=== PATIENT | female | born 1990 | race Caucasian/White ===

== ENCOUNTER 2018-01-09 10:39 | Emergency (ER) | payer BC, OTHER, SELFPAY ==
[2018-01-09 11:48] LABS: Bicarbonate 26 mEq/L (21-31); Glucose Level 99 mg/dL (65-120); Potassium 3.8 mEq/L (3.6-5.0); Sodium Level 138 mEq/L (135-145)
[2018-01-09 11:49] LABS: BUN Blood Urea Nitrogen 8 mg/dL (6-20)
[2018-01-09 11:50] LABS: Absolute Lymphocytes (CBC) 2.6 K/uL (0.7-4.9); Absolute Monocytes 0.6 K/uL (0.1-1.3); Absolute Neutrophil 5.4 K/uL (1.8-8.0); Basophils % 0.5 % (0-1.3); Eosinophils % 0.7 % (0-4.4); Lymphocytes % 29.6 % (15.3-44.8); MCH 30.1 pg (27.0-35.0); MCV 89.9 fL (80-100); MPV 7.5 fL (7.6-11.3); Monocytes % 6.6 % (3.3-12.3); RBC Red Blood Cell Count 4.57 M/uL (3.86-4.86)
[2018-01-09 12:01] LABS: HCG, Quantitative 88.3 mIU/mL (<5)
--- NOTE | 2018-01-09 13:09 | ER ---
Nurse's Notes [facility] Name: Pamela Torres Age: 27 yrs Sex: Female : 1990 Arrival Date: 01/09/2018 Time: 10:43 Bed 17 Private MD: None, None Diagnosis: Threatened Presentation: 01/09 10:49 Presenting complaint: Patient states: is approx 5 weeks , started having iw vaginal bleeding and cramping this morning, started as light pink, no bright red. Transition of care: patient was not received from another setting of care. Onset of symptoms was January 09, 2018. Risk Assessment: Do you want to hurt yourself or someone else? Patient reports no desire to harm self or others. Initial Sepsis Screen: Does the patient meet any 2 criteria? No. Patient's initial sepsis screen is negative. Does the patient have a suspected source of infection? No. Patient's initial sepsis screen is negative. Care prior to arrival: None. 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 - Social history:: Smoking status: Patient uses tobacco products, smokes one-half pack cigarettes per day, Patient/guardian denies using alcohol, street drugs, The patient lives with family. - Ebola Screening: : Patient negative for fever greater than or equal to 101.5 degrees Fahrenheit, and additional compatible Ebola Virus Disease symptoms Patient denies exposure to infectious person Patient denies travel to an Ebola-affected area in the 21 days before illness onset No symptoms or risks identified at this time. - Family history:: not pertinent. Screenin:54 Abuse screen: Denies threats or abuse. Nutritional screening: No deficits noted. em Tuberculosis screening: No symptoms or risk factors identified. Fall Risk None identified. Assessment: 11:00 Reassessment: Patient appears in no apparent distress at this time. General: Appears in em no apparent distress. uncomfortable, Behavior is calm, cooperative. Pain: Complains of pain in abdomen Pain currently is 5 out of 10 on a pain scale. Quality of pain is described as crampy. Neuro: Level of Consciousness is awake, alert, obeys commands, Oriented to person, place, time, situation, Denies dizziness. Cardiovascular: Capillary refill < 3 seconds Patient's skin is warm and dry. Respiratory: Airway is patent Respiratory effort is even, unlabored, Respiratory pattern is regular, symmetrical. GI: Abdomen is round non-distended, Bowel sounds present X 4 quads. Abd is soft X 4 quads Abdomen is tender to palpation in right upper quadrant and right lower quadrant Reports cramping, Patient currently denies diarrhea, nausea, vomiting. : No signs and/or symptoms were reported regarding the genitourinary system. EENT: No signs and/or symptoms were reported regarding the EENT system. Derm: Skin is intact, Skin is pink, warm \T\ dry. Musculoskeletal: Range of motion: intact in all extremities. 11:20 Reassessment: Patient appears in no apparent distress at this time. I agree with above iw assessment by Humberto Mariee LVN. Vital Signs: 10:50 BP 106 / 62; Pulse 81; Resp 16; Temp 98.8(TE); Pulse Ox 100% on R/A; Weight 68.04 kg; iw Height 5 ft. 2 in. (157.48 cm); Pain 5/10; 11:53 BP 94 / 57; Pulse 67; Resp 18; Pulse Ox 100% on R/A; Pain 5/10; em 13:12 BP 111 / 76; Pulse 74; Resp 16; Pulse Ox 99% on R/A; em 10:50 Body Mass Index 27.44 (68.04 kg, 157.48 cm) iw ED Course: 10:43 Patient arrived in ED. mr 10:43 None, None is Private Physician. mr 10:50 Triage completed. iw 10:50 Arm band placed on. iw 10:57 Sudha Horne MD is Attending Physician. ma2 11:23 Humberto Mariee LVN is Primary Nurse. em 11:30 Initial lab(s) drawn, by me, sent to lab. Inserted saline lock: 20 gauge in right em antecubital area, using aseptic technique. Blood collected. 11:54 Patient has correct armband on for positive identification. Placed in gown. Bed in low em position. Call light in reach. 13:11 Transvaginal OB In Process Unspecified. EDMS 13:45 No provider procedures requiring assistance completed. IV discontinued, intact, em bleeding controlled, No redness/swelling at site. Pressure dressing applied. Administered Medications: No medications were administered Point of Care Testing: Urine : 11:53 hCG Reading: Negative; em Outcome: 13:09 Discharge ordered by MD. mckay 13:50 Discharged to home ambulatory. em 13:50 Condition: good 13:50 Discharge instructions given to patient, Instructed on discharge instructions, follow up and referral plans. no drinking with medication, no driving heavy equipment, medication usage, Demonstrated understanding of instructions, follow-up care, medications, Prescriptions given X 1. 13:50 Patient left the ED. em Signatures: Dispatcher [employer] EDSofia Castro, Humberto, HOT TAR ROOFER HELPER HOT TAR ROOFER HELPER em Hien Gomez, Sudha Rene RN, MD MD ma2
--- NOTE | 2018-01-09 13:09 | EDPHYS ---
Physician Documentation [facility] Name: Pamela Torres Age: 27 yrs Sex: Female : 1990 Arrival Date: 01/09/2018 Time: 10:43 Bed 17 Private MD: None, None ED Physician Sudha Horne HPI: 01/09 11:04 This 27 yrs old Female presents to ER via Ambulatory with complaints of ma2 Vaginal Bleeding, + Preg <12wks. 11:04 The patient presents to the emergency department with abdominal pain, of the left lower ma2 quadrant. The estimated gestational age is 5 weeks. Associated signs and symptoms: Pertinent positives: vaginal bleeding, Pertinent negatives: chest pain, frequency, nausea, ruptured membranes, shortness of breath, vaginal discharge, vomiting. The patient has not experienced similar symptoms in the past. 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 - Social history:: Smoking status: Patient uses tobacco products, smokes one-half pack cigarettes per day, Patient/guardian denies using alcohol, street drugs, The patient lives with family. - Ebola Screening: : Patient negative for fever greater than or equal to 101.5 degrees Fahrenheit, and additional compatible Ebola Virus Disease symptoms Patient denies exposure to infectious person Patient denies travel to an Ebola-affected area in the 21 days before illness onset No symptoms or risks identified at this time. - Family history:: not pertinent. ROS: 11:04 : Positive for pelvic pain, vaginal bleeding. ma2 11:04 All other systems are negative. 13:09 Constitutional: Negative for fever, chills, and weight loss. ma2 Exam: 11:04 Constitutional: This is a well developed, well nourished patient who is awake, alert, ma2 and in no acute distress. Head/Face: Normocephalic, atraumatic. Chest/axilla: Normal chest wall appearance and motion. Nontender with no deformity. No lesions are appreciated. Cardiovascular: Regular rate and rhythm with a normal S1 and S2. No gallops, murmurs, or rubs. Normal PMI, no JVD. No pulse deficits. Respiratory: Lungs have equal breath sounds bilaterally, clear to auscultation and percussion. No rales, rhonchi or wheezes noted. No increased work of breathing, no retractions or nasal flaring. Abdomen/GI: Soft, non-tender, with normal bowel sounds. No distension or tympany. No guarding or rebound. No evidence of tenderness throughout. Vital Signs: 10:50 BP 106 / 62; Pulse 81; Resp 16; Temp 98.8(TE); Pulse Ox 100% on R/A; Weight 68.04 kg; iw Height 5 ft. 2 in. (157.48 cm); Pain 5/10; 11:53 BP 94 / 57; Pulse 67; Resp 18; Pulse Ox 100% on R/A; Pain 5/10; em 13:12 BP 111 / 76; Pulse 74; Resp 16; Pulse Ox 99% on R/A; em 10:50 Body Mass Index 27.44 (68.04 kg, 157.48 cm) iw MDM: 10:57 Patient medically screened. ma2 11:04 Differential diagnosis: delivery of infant, STD, ectopic . ma2 13:08 Data reviewed: vital signs, nurses notes, EMS record, lab test result(s), EKG. Test ma2 interpretation: by ED physician or midlevel provider: ECG, plain radiologic studies. Counseling: I had a detailed discussion with the patient and/or guardian regarding: the historical points, exam findings, and any diagnostic results supporting the discharge/admit diagnosis, the presence of at least one elevated blood pressure reading (>120/80) during this emergency department visit. Medical screen evaluation completed. EMTALA emergency medical condition absent. 01/09 11:04 Order name: Quantitative Hcg; Complete Time: 12:02 [facility] 01/09 11:04 Order name: Abo/rh Typing; Complete Time: 12:43 [facility] 01/09 11:04 Order name: Basic Metabolic Panel; Complete Time: 12:02 [facility] 01/09 11:04 Order name: CBC with Diff; Complete Time: 12:02 [facility] 01/09 11:16 Order name: Urine Dipstick--Ancillary (enter results) bd 01/09 11:16 Order name: Urine --Ancillary (enter results) bd 01/09 11:04 Order name: Urine Test (obtain specimen); Complete Time: 11: [facility] 01/09 11:04 Order name: IV Saline Lock; Complete Time: 11:44 la2 01/09 11:04 Order name: Labs collected and sent; Complete Time: :44 [facility] 01/09 11:04 Order name: NPO; Complete Time: 11: [facility] 01/09 11:04 Order name: Urine Dipstick-Ancillary (obtain specimen); Complete Time: 11: [facility] 01/09 12:10 Order name: Transvaginal OB EDMS 01/09 12:18 Order name: ABO/RH no charge; Complete Time: 12:43 EDMS Administered Medications: No medications were administered Point of Care Testing: Urine : 11:53 hCG Reading: Negative; em Disposition: 01/09/18 13:09 Discharged to Home. Impression: Threatened . - Condition is Stable. - Discharge Instructions: Threatened Miscarriage, Threatened Miscarriage, Veda-ip-Hepb, Pelvic Rest. - Prescriptions for Tylenol- Codeine #3 300-30 mg Oral Tablet - take 2 tablet by ORAL route every 6 hours As needed; 30 tablet. - Medication Reconciliation Form, Thank You Letter, Antibiotic Education, Prescription Opioid Use form. - Follow up: Private Physician; When: Tomorrow; Reason: Continuance of care. - Problem is new. - Symptoms are unchanged. Signatures: Dispatcher [employer] [facility] Humberto Mariee, DIRECTOR OF HOME ECONOMICS DIRECTOR OF HOME ECONOMICS em Hien Gomez RN RN iw Alzahri, Mohammad, MD MD ma2 Corrections: (The following items were deleted from the chart) 12:10 12:02 OB Complete+US.RAD.BRZ ordered. [facility] EDMN 13:50 13:09 01/09/2018 13:09 Discharged to Home. Impression: Threatened . Condition em is Stable. Forms are Medication Reconciliation Form, Thank You Letter, Antibiotic Education, Prescription Opioid Use. Follow up: Private Physician; When: Tomorrow; Reason: Continuance of care. Problem is new. Symptoms are unchanged. ma2
[2018-01-09 13:28] LABS: Urine Blood 1+ (NEG); Urine Glucose NEGATIVE (NEG); Urine Protein NEGATIVE (NEG)
--- NOTE | 2018-01-09 15:37 | RAD REPORT ---
EXAM DESCRIPTION: US - Transvaginal OB - 01/09/2018 1:11 pm CLINICAL HISTORY: Abdominal pain and cramping, vaginal bleeding, beta HCG 88.3 Preliminary findings provided the time of the study. COMPARISON: None. FINDINGS: Endometrial stripe is 9 mm in thickness. Endometrial tissue is homogeneous. No gestational sac or sac remnant identifiable. There is no hematoma. Nabothian cysts are present. No focal myometr ium mass in a normal-sized uterus. No blood or fluid in the cul-de-sac. Right ovary is unremarkable. Left ovary was not visualized. No adnexal mass seen to suspect ectopic . IMPRESSION: No intrauterine gestational sac or sac remnant. No suspicious intrauterine finding. No adnexal abnormality identifiable. Repeat sonography could be performed if serial HCG values show increase.
== END 2018-01-09 13:50 | disposition home or self-care (01) ==
LOC: ER 10:39
DX: O20.0 Threatened abortion (principal); Z3A.01 Less than 8 weeks gestation of pregnancy
CPT/HCPCS: 36415; 76817; 80048; 81003; 81025; 84702; 85025; 86900; 86901; 99284

== ENCOUNTER 2018-01-24 10:12 | Emergency (ER) | payer OTHER ==
[2018-01-24 12:28] LABS: Absolute Lymphocytes (CBC) 2.6 K/uL (0.7-4.9); Absolute Monocytes 0.6 K/uL (0.1-1.3); Absolute Neutrophil 7.4 K/uL (1.8-8.0); Basophils % 0.5 % (0-1.3); Eosinophils % 0.7 % (0-4.4); Hematocrit 42.4 % (36.0-45.0); Lymphocytes % 24.4 % (15.3-44.8); MCH 29.8 pg (27.0-35.0); MCV 91.2 fL (80-100); MPV 7.6 fL (7.6-11.3); Monocytes % 5.6 % (3.3-12.3); RBC Red Blood Cell Count 4.65 M/uL (3.86-4.86)
[2018-01-24 12:41] LABS: Bicarbonate 26 mEq/L (21-31); Glucose Level 89 mg/dL (65-120); Potassium 3.7 mEq/L (3.6-5.0); Sodium Level 139 mEq/L (135-145)
[2018-01-24 12:42] LABS: BUN Blood Urea Nitrogen 8 mg/dL (6-20)
--- NOTE | 2018-01-24 12:43 | RAD REPORT ---
EXAM DESCRIPTION: US - Transvaginal OB - 01/24/2018 12:27 pm CLINICAL HISTORY: with abdominal pain and vaginal bleeding COMPARISON: January 09, 2018 FINDINGS: The beta HCG level was not available the time of this dictation. The uterus measures 10 x 5 x 6 centimeters. A gestational sac is not visualized within the endometriu m. The endometrial stripe measures 9 millimeters. The ovaries are normal in size and echotexture. No significant free fluid is seen. IMPRESSION: This could represent an early IUP in which the gestational sac is not yet seen. Other co nsiderations include a complete as well as ectopic . This all should be correlated clinically and with serial beta HCG levels. Follow up endovaginal sonogram in 1 week may be helpful f or further evaluation
[2018-01-24 12:54] LABS: Urine Blood NEGATIVE (NEG); Urine Glucose NEGATIVE (NEG); Urine Protein NEGATIVE (NEG); Urine pH 6.5 (5.0-7.0)
[2018-01-24 12:54] LABS: HCG, Quantitative 302.2 mIU/mL (<5)
[2018-01-24 12:56] LABS: Urine Bacteria <20 /HPF (<20); Urine Culture Reflex Order NOT NEEDED; Urine RBC <5 /HPF (NONE SEEN)
--- NOTE | 2018-01-24 13:38 | ER ---
Nurse's Notes [facility] Name: Pamela Torres Age: 27 yrs Sex: Female : 1990 Arrival Date: 01/24/2018 Time: 10:17 Bed 16 Private MD: None, None Diagnosis: Threatened Presentation: 01/24 10:27 Presenting complaint: Patient states: Intermittent spotty vaginal bleeding and lower hb abdominal cramping x 1 week. Pt reports she is approx 7 weeks , , first OB appt with Dr. Multani 02/14/18. Transition of care: patient was not received from another setting of care. Onset of symptoms is unknown. Risk Assessment: Do you want to hurt yourself or someone else? Patient reports no desire to harm self or others. 10:27 Method Of Arrival: Ambulatory hb 10:27 Acuity: MARIO ALBERTO 3 hb 12:00 Initial Sepsis Screen: Does the patient meet any 2 criteria? No. Patient's initial ph sepsis screen is negative. Does the patient have a suspected source of infection? No. Patient's initial sepsis screen is negative. Care prior to arrival: None. 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 - Social history:: Smoking status: Patient uses tobacco products, smokes one-half pack cigarettes per day. - Ebola Screening: : No symptoms or risks identified at this time. Screenin:00 Abuse screen: Denies threats or abuse. Denies injuries from another. Nutritional ph screening: No deficits noted. Tuberculosis screening: No symptoms or risk factors identified. Fall Risk None identified. Assessment: 12:00 Obstetrical Assessment: General assessment: awake and alert, Patient reports abdominal ph cramping. General: Appears in no apparent distress. comfortable, slender, well groomed, Behavior is calm, cooperative, appropriate for age, Denies fever, feeling ill. Pain: Complains of pain in suprapubic area. Neuro: Level of Consciousness is awake, alert, obeys commands, Oriented to person, place, time, situation. Cardiovascular: Capillary refill < 3 seconds Patient's skin is warm and dry. Respiratory: Airway is patent Respiratory effort is even, unlabored. GI: No signs and/or symptoms were reported involving the gastrointestinal system. : Reports pain in suprapubic area vaginal bleeding that is spotty. Derm: Skin is intact, is healthy with good turgor, Skin is pink, warm \T\ dry. 13:00 Reassessment: Patient appears in no apparent distress at this time. Patient and/or ph family updated on plan of care and expected duration. Pain level reassessed. Patient is alert, oriented x 3, equal unlabored respirations, skin warm/dry/pink. Pt resting quietly, awaiting lab and US results. 14:00 Reassessment: Patient appears in no apparent distress at this time. Patient and/or ph family updated on plan of care and expected duration. Pain level reassessed. Patient is alert, oriented x 3, equal unlabored respirations, skin warm/dry/pink. Pt discharged home. Vital Signs: 10:28 BP 171 / 92; Pulse 89; Resp 16; Temp 98.1; Pulse Ox 100% on R/A; Weight 67.13 kg; hb Height 5 ft. 2 in. (157.48 cm); Pain 4/10; 12:30 BP 164 / 89; Pulse 76; Resp 18; Pulse Ox 99% on R/A; ph 13:30 BP 159 / 78; Pulse 74; Resp 18; Temp 97.8; Pulse Ox 98% on R/A; ph 10:28 Body Mass Index 27.07 (67.13 kg, 157.48 cm) hb ED Course: 10:17 Patient arrived in ED. sb2 10:17 None, None is Private Physician. sb2 10:28 Triage completed. hb 10:29 Arm band placed on right wrist. hb 11:56 Dalia Ga, RN is Primary Nurse. ph 12:00 Patient has correct armband on for positive identification. Placed in gown. Bed in low ph position. Call light in reach. Side rails up X 1. Pulse ox on. NIBP on. Warm blanket given. 12:03 Justin Huddleston NP is PHCP. pm1 12:03 Suraj Caro MD is Attending Physician. pm1 12:21 Initial lab(s) drawn, by me, sent to lab. Urine collected: clean catch specimen, clear, jb1 bakari colored. 12:27 US Transvaginal Ob In Process Unspecified. EDMS 14:00 No provider procedures requiring assistance completed. IV discontinued, intact, ph bleeding controlled, No redness/swelling at site. Pressure dressing applied. Administered Medications: No medications were administered Outcome: 13:38 Discharge ordered by MD. pm1 14:06 Patient left the ED. ph 14:06 Discharged to home ambulatory. ph 14:06 Condition: good 14:06 Discharge instructions given to patient, Instructed on discharge instructions, follow up and referral plans. Demonstrated understanding of instructions, follow-up care. Signatures: Dispatcher [employer] EDMN Manohra William jb1 Dalia Ga, RN RN Justin Toro, [employer] RESTAUR[employer] AREA MANAGER pm1 Fidelina De La Rosa RN RN Toña Hays sb2
--- NOTE | 2018-01-24 13:38 | EDPHYS ---
Physician Documentation [facility] Name: Pamela Torres Age: 27 yrs Sex: Female : 1990 Arrival Date: 01/24/2018 Time: 10:17 Bed 16 Private MD: None, None ED Physician Suraj Caro HPI: 01/24 13:16 This 27 yrs old Female presents to ER via Ambulatory with complaints of pm1 Vaginal Bleeding, + Preg <12wks. 13:16 The patient presents to the emergency department with vaginal bleeding, that is light, pm1 7 days of vaginal bleeding. 1 panty liner per day. Maybe passed some clots on 2nd day of bleeding.. The estimated gestational age is 6 weeks. course: care: Dr. Multani appointment at the beginning of February, Risk/complications: no obvious risks or complications are appreciated. Previous pregnancies: in previous pregnancies patient has had vaginal delivery. Associated signs and symptoms: Pertinent negatives: abdominal pain, dysuria, fever, nausea, vomiting. The patient has not experienced similar symptoms in the past. The patient has not recently seen a physician. 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 - Social history:: Smoking status: Patient uses tobacco products, smokes one-half pack cigarettes per day. - Ebola Screening: : No symptoms or risks identified at this time. ROS: 13:16 Constitutional: Negative for fever, chills, and weight loss, Eyes: Negative for injury, pm1 pain, redness, and discharge, ENT: Negative for injury, pain, and discharge, Neck: Negative for injury, pain, and swelling, Cardiovascular: Negative for chest pain, palpitations, and edema, Respiratory: Negative for shortness of breath, cough, wheezing, and pleuritic chest pain, Abdomen/GI: Negative for abdominal pain, nausea, vomiting, diarrhea, and constipation, Back: Negative for injury and pain. 13:16 MS/Extremity: Negative for injury and deformity, Skin: Negative for injury, rash, and discoloration, Neuro: Negative for headache, weakness, numbness, tingling, and seizure. 13:16 : Positive for vaginal bleeding, Negative for urinary frequency, pelvic pain, flank pain, burning with urination, vaginal discharge, vaginal itching. Exam: 13:16 Constitutional: This is a well developed, well nourished patient who is awake, alert, pm1 and in no acute distress. Head/Face: Normocephalic, atraumatic. Eyes: Pupils equal round and reactive to light, extra-ocular motions intact. Lids and lashes normal. Conjunctiva and sclera are non-icteric and not injected. Cornea within normal limits. Periorbital areas with no swelling, redness, or edema. ENT: Nares patent. No nasal discharge, no septal abnormalities noted. Tympanic membranes are normal and external auditory canals are clear. Oropharynx with no redness, swelling, or masses, exudates, or evidence of obstruction, uvula midline. Mucous membranes moist. Neck: Trachea midline, no thyromegaly or masses palpated, and no cervical lymphadenopathy. Supple, full range of motion without nuchal rigidity, or vertebral point tenderness. No Meningismus. Chest/axilla: Normal chest wall appearance and motion. Nontender with no deformity. No lesions are appreciated. Cardiovascular: Regular rate and rhythm with a normal S1 and S2. No gallops, murmurs, or rubs. No pulse deficits. Respiratory: Lungs have equal breath sounds bilaterally, clear to auscultation and percussion. No rales, rhonchi or wheezes noted. No increased work of breathing, no retractions or nasal flaring. Abdomen/GI: Soft, non-tender, with normal bowel sounds. No distension or tympany. No guarding or rebound. No evidence of tenderness throughout. Back: No spinal tenderness. No costovertebral tenderness. Full range of motion. Skin: Warm, dry with normal turgor. Normal color with no rashes, no lesions, and no evidence of cellulitis. MS/ Extremity: Pulses equal, no cyanosis. Neurovascular intact. Full, normal range of motion. 13:16 Neuro: Orientation: is normal, Motor: is normal, moves all fours, Gait: is steady, at a normal pace, without difficulty. Vital Signs: 10:28 BP 171 / 92; Pulse 89; Resp 16; Temp 98.1; Pulse Ox 100% on R/A; Weight 67.13 kg; hb Height 5 ft. 2 in. (157.48 cm); Pain 4/10; 12:30 BP 164 / 89; Pulse 76; Resp 18; Pulse Ox 99% on R/A; ph 13:30 BP 159 / 78; Pulse 74; Resp 18; Temp 97.8; Pulse Ox 98% on R/A; ph 10:28 Body Mass Index 27.07 (67.13 kg, 157.48 cm) hb MDM: 12:03 Patient medically screened. pm1 13:30 Differential diagnosis: threatened Ab, ectopic , UTI. pm1 13:36 Data reviewed: vital signs. Data interpreted: Pulse oximetry: on room air is 100 %. pm1 Interpretation: normal. Counseling: I had a detailed discussion with the patient and/or guardian regarding: the historical points, exam findings, and any diagnostic results supporting the discharge/admit diagnosis, lab results, radiology results, the need for outpatient follow up, an OB/Gyne specialist, to return to the emergency department if symptoms worsen or persist or if there are any questions or concerns that arise at home. 01/24 12:03 Order name: Quantitative Hcg; Complete Time: 13:13 pm01/24 12:03 Order name: Abo/rh Typing; Complete Time: 13:13 pm01/24 12:03 Order name: Basic Metabolic Panel; Complete Time: 13:13 pm01/24 12:04 Order name: CBC with Diff; Complete Time: 12:54 pm01/24 12:20 Order name: Urine Culture 01/24 12:20 Order name: Urine Microscopic Only; Complete Time: 13:13 01/24 12:03 Order name: Urine Test (obtain specimen); Complete Time: 12:20 pm01/24 12:04 Order name: IV Saline Lock; Complete Time: 12:20 01/24 12:04 Order name: Labs collected and sent; Complete Time: 12:20 pm01/24 12:04 Order name: NPO; Complete Time: 12:20 pm01/24 12:04 Order name: Urine Dipstick-Ancillary (obtain specimen); Complete Time: 12:20 pm01/24 12:08 Order name: US Transvaginal Ob; Complete Time: 12:54 pm1 01/24 12:39 Order name: Urine Dipstick--Ancillary (enter results); Complete Time: 13:13 ag 01/24 12:39 Order name: Urine --Ancillary (enter results); Complete Time: 13:13 ag Administered Medications: No medications were administered Disposition: 01/25 10:49 Co-signature as Attending Physician, Suraj Caro MD I agree with the assessment and [facility] plan of care. Disposition: 01/24/18 13:38 Discharged to Home. Impression: Threatened . - Condition is Stable. - Discharge Instructions: Threatened Miscarriage, Pelvic Rest. - Medication Reconciliation Form, Thank You Letter, Antibiotic Education, Prescription Opioid Use form. - Follow up: Emergency Department; When: As needed; Reason: Worsening of condition. Follow up: Private Physician; When: 2 - 3 days; Reason: Recheck today's complaints, Continuance of care, Re-evaluation by your physician. - Problem is new. - Symptoms have improved. Signatures: Dispatcher [employer] EDIA Suraj Caro MD MD cha Hall, Patricia, RN RN ph Justin Huddleston, KEYON CULINARY MANAGER pm1 Fidelina De La Rosa RN RN Corrections: (The following items were deleted from the chart) 01/24 13:37 13:36 Counseling: I had a detailed discussion with the patient and/or guardian pm1 regarding: the historical points, exam findings, and any diagnostic results supporting the discharge/admit diagnosis, radiology results, the need for outpatient follow up, a neurosurgeon, to return to the emergency department if symptoms worsen or persist or if there are any questions or concerns that arise at home, pm1 14:06 13:38 01/24/2018 13:38 Discharged to Home. Impression: Threatened . Condition ph is Stable. Forms are Medication Reconciliation Form, Thank You Letter, Antibiotic Education, Prescription Opioid Use. Follow up: Emergency Department; When: As needed; Reason: Worsening of condition. Follow up: Private Physician; When: 2 - 3 days; Reason: Recheck today's complaints, Continuance of care, Re-evaluation by your physician. Problem is new. Symptoms have improved. pm1
== END 2018-01-24 14:06 | disposition home or self-care (01) ==
LOC: ER 10:12
DX: O20.0 Threatened abortion (principal); O99.331 Smoking (tobacco) complicating pregnancy, first trimester; F17.210 Nicotine dependence, cigarettes, uncomplicated; Z3A.01 Less than 8 weeks gestation of pregnancy
CPT/HCPCS: 36415; 76817; 80048; 81003; 81015; 81025; 84702; 85025; 86900; 86901; 87086; 87088; 99283

== ENCOUNTER 2018-02-17 11:02 | Emergency (ER) | payer OTHER ==
[2018-02-17 11:38] LABS: Absolute Lymphocytes (CBC) 2.4 K/uL (0.7-4.9); Absolute Monocytes 0.6 K/uL (0.1-1.3); Basophils % 0.2 % (0-1.3); Eosinophils % 0.7 % (0-4.4); Hematocrit 39.6 % (36.0-45.0); Lymphocytes % 26.3 % (15.3-44.8); MCV 92.3 fL (80-100); MPV 7.2 fL (7.6-11.3); RBC Red Blood Cell Count 4.29 M/uL (3.86-4.86)
[2018-02-17 11:59] LABS: ALT/SGPT 15 U/L (12-78); AST/SGOT 15 U/L (15-37); Alkaline Phosphatase 60 U/L (45-117); BUN Blood Urea Nitrogen 9 mg/dL (7-18); Bicarbonate 26 mmol/L (21-32); Bilirubin Total 0.5 mg/dL (0.2-1.0); Glucose Level 115 mg/dL (74-106); Protein, Total 7.1 g/dL (6.4-8.2); Sodium Level 140 mmol/L (136-145)
--- NOTE | 2018-02-17 13:06 | P.PN ---
Date of Service: 02/17/18 ER provider Tracie called to discuss MTX tx x1 dose for ectopic . Orders placed for 50 mg/m^2 IM x1 and pharmacy to dose. D/c home following treatment with orders for repeat hCG quant levels on day #4 and day 7. F/u in office thereafter. Reviewed with Tracie.
--- NOTE | 2018-02-17 13:30 | ER ---
Nurse's Notes [facility] Name: Pamela Torres Age: 27 yrs Sex: Female : 1990 Arrival Date: 02/17/2018 Time: 11:04 Bed 5 Private MD: None, None Diagnosis: Ectopic Presentation: 02/17 11:08 Presenting complaint: Patient states: Sent by for eval d/t confirmed Ectopic sg , pt reports LLQ pain that radiates to the left side of the back. Transition of care: patient was not received from another setting of care. Onset of symptoms was February 17, 2018. Risk Assessment: Do you want to hurt yourself or someone else? Patient reports no desire to harm self or others. Initial Sepsis Screen: Does the patient meet any 2 criteria? No. Patient's initial sepsis screen is negative. Does the patient have a suspected source of infection? No. Patient's initial sepsis screen is negative. Care prior to arrival: None. 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 - Social history:: Smoking status: Patient uses tobacco products, denies chronic smoking, but will smoke occasionally. - Ebola Screening: : Patient negative for fever greater than or equal to 101.5 degrees Fahrenheit, and additional compatible Ebola Virus Disease symptoms Patient denies exposure to infectious person Patient denies travel to an Ebola-affected area in the 21 days before illness onset No symptoms or risks identified at this time. - Family history:: not pertinent. - Hospitalizations: : No recent hospitalization is reported. Screenin:25 Abuse screen: Denies threats or abuse. Denies injuries from another. Nutritional sv screening: No deficits noted. Tuberculosis screening: No symptoms or risk factors identified. Fall Risk None identified. Assessment: 11:25 General: Appears in no apparent distress. uncomfortable, slender, Behavior is calm, sv cooperative, appropriate for age. Pain: Complains of pain in left lower quadrant Pain radiates to left low back Pain currently is 8 out of 10 on a pain scale. Is continuous. Neuro: Level of Consciousness is awake, alert, obeys commands, Oriented to person, place, time, situation, Moves all extremities. Full function Gait is steady. Respiratory: Respiratory effort is even, unlabored, Respiratory pattern is regular, symmetrical. Derm: Skin is pink, warm \T\ dry. 12:40 Reassessment: Patient appears in no apparent distress at this time. Patient and/or sv family updated on plan of care and expected duration. Pain level reassessed. Patient is alert, oriented x 3, equal unlabored respirations, skin warm/dry/pink. 12:55 Reassessment: spoke with Dr. Multani, awaiting for methotrexate order. ss 14:15 Reassessment: Patient appears in no apparent distress at this time. Patient and/or sv family updated on plan of care and expected duration. Pain level reassessed. Patient is alert, oriented x 3, equal unlabored respirations, skin warm/dry/pink. Vital Signs: 11:07 BP 103 / 62; Pulse 60; Resp 17; Temp 98.5; Pulse Ox 100% ; Weight 69.85 kg (R); Height sg 5 ft. 2 in. (157.48 cm); Pain 8/10; 11:54 BP 103 / 64; Pulse 64; Resp 16; Pulse Ox 100% ; sv 12:54 BP 103 / 69; Pulse 66; Resp 17; Pulse Ox 99% on R/A; dh3 13:29 BP 92 / 62; Pulse 53; Resp 18; Pulse Ox 100% on R/A; dh3 14:15 BP 96 / 64; Pulse 60; Resp 18; Pulse Ox 100% ; sv 11:07 Body Mass Index 28.17 (69.85 kg, 157.48 cm) sg ED Course: 11:04 Patient arrived in ED. sb2 11:05 None, None is Private Physician. sb2 11:07 Arm band placed on. sg 11:09 Triage completed. sg 11:10 Benito Palumbo MD is Attending Physician. rn 11:22 Yodit Urbina RN is Primary Nurse. sv 11:25 Patient has correct armband on for positive identification. Bed in low position. Door sv closed. Warm blanket given. Head of bed elevated. 11:26 Initial lab(s) drawn, by me, sent to lab. Inserted saline lock: 20 gauge in right dh3 antecubital area, using aseptic technique. Blood collected. 13:29 Selene Multani MD is Referral Physician. rn 14:33 No provider procedures requiring assistance completed. IV discontinued, intact, ph bleeding controlled, No redness/swelling at site. Pressure dressing applied. Administered Medications: 14:15 Drug: Methotrexate 86 mg Route: IM; Site: right gluteus; sv 14:30 Follow up: Response: No adverse reaction sv Outcome: 13:30 Discharge ordered by MD. rn 14:30 Discharged to home ambulatory. sv 14:30 Condition: stable 14:30 Discharge instructions given to patient, Instructed on discharge instructions, follow up and referral plans. Demonstrated understanding of instructions, follow-up care. 14:34 Patient left the ED. ph Signatures: Yodit Urbina RN CELY Schuyler Mason RN Benito Ryan MD MD rn Smirch, Shelby, RN RN Dalia Ga RN RN Laura Velarde [facility] Toña Copeland 2 Corrections: (The following items were deleted from the chart) 14:22 14:21 Methotrexate 86 mg IM in right gluteus sv sv
--- NOTE | 2018-02-17 13:31 | EDPHYS ---
Physician Documentation [facility] Name: Pamela Torres Age: 27 yrs Sex: Female : 1990 Arrival Date: 02/17/2018 Time: 11:04 Bed 5 Private MD: None, None ED Physician Benito Palumbo HPI: 02/17 11:53 This 27 yrs old Female presents to ER via Ambulatory with complaints of rn Eptopic ,sent by . 11:53 The patient presents to the emergency department with abdominal pain, vaginal bleeding. rn The estimated gestational age is 10 weeks. Previous pregnancies: in previous pregnancies patient has had. The patient has not experienced similar symptoms in the past. The patient has been recently seen by a physician:. Is being evaluated by Dr. Mensah as outpt for suspected ectopic , has had 2 u/s as outpt with no IUP visualized, + vaginal bleeding for a few weeks, + left sided abd pain, sent here by Dr. Mensah not for evaluation but solely for methotrexate shot. Patient had discussion with Dr. mensah and consents to use of methotrexate. . 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 - Social history:: Smoking status: Patient uses tobacco products, denies chronic smoking, but will smoke occasionally. - Ebola Screening: : Patient negative for fever greater than or equal to 101.5 degrees Fahrenheit, and additional compatible Ebola Virus Disease symptoms Patient denies exposure to infectious person Patient denies travel to an Ebola-affected area in the 21 days before illness onset No symptoms or risks identified at this time. - Family history:: not pertinent. - Hospitalizations: : No recent hospitalization is reported. ROS: 11:53 Constitutional: Negative for fever, chills, and weight loss, Eyes: Negative for injury, rn pain, redness, and discharge, Neck: Negative for injury, pain, and swelling, Cardiovascular: Negative for chest pain, palpitations, and edema, Respiratory: Negative for shortness of breath, cough, wheezing, and pleuritic chest pain, Abdomen/GI: + left sided abd pain : + vaginal bleeding MS/Extremity: Negative for injury and deformity, Neuro: Negative for headache, weakness, numbness, tingling, and seizure. Exam: 11:53 Constitutional: This is a well developed, well nourished patient who is awake, alert, rn and in no acute distress. Head/Face: Normocephalic, atraumatic. Eyes: Pupils equal round and reactive to light, extra-ocular motions intact. Lids and lashes normal. Conjunctiva and sclera are non-icteric and not injected. Cornea within normal limits. Periorbital areas with no swelling, redness, or edema. Cardiovascular: Regular rate and rhythm with a normal S1 and S2. No gallops, murmurs, or rubs. Normal PMI, no JVD. No pulse deficits. Respiratory: Lungs have equal breath sounds bilaterally, clear to auscultation and percussion. No rales, rhonchi or wheezes noted. No increased work of breathing, no retractions or nasal flaring. Abdomen/GI: soft, + LLQ abd tenderness, no rebound, no peritoneal signs MS/ Extremity: Pulses equal, no cyanosis. Neurovascular intact. Full, normal range of motion. Equal circumference. Neuro: Awake and alert, GCS 15, oriented to person, place, time, and situation. Cranial nerves II-XII grossly intact. Motor strength 5/5 in all extremities. Sensory grossly intact. Cerebellar exam normal. Normal gait. Vital Signs: 11:07 BP 103 / 62; Pulse 60; Resp 17; Temp 98.5; Pulse Ox 100% ; Weight 69.85 kg (R); Height sg 5 ft. 2 in. (157.48 cm); Pain 8/10; 11:54 BP 103 / 64; Pulse 64; Resp 16; Pulse Ox 100% ; sv 12:54 BP 103 / 69; Pulse 66; Resp 17; Pulse Ox 99% on R/A; dh3 13:29 BP 92 / 62; Pulse 53; Resp 18; Pulse Ox 100% on R/A; dh3 14:15 BP 96 / 64; Pulse 60; Resp 18; Pulse Ox 100% ; sv 11:07 Body Mass Index 28.17 (69.85 kg, 157.48 cm) MDM: 11:10 Patient medically screened. rn 13:18 ED course: Dr. Mensah is ordering methotrexate. Also requests repeat beta-hcg on Wednesday, rn outpatient order written for patient and handed to her, is to see Dr. Mensah on Wednesday.. 13:29 Differential diagnosis: ectopic . Data reviewed: vital signs, nurses notes, turn supervisor test result(s), radiologic studies, and as a result, I will discharge patient. Counseling: I had a detailed discussion with the patient and/or guardian regarding: the historical points, exam findings, and any diagnostic results supporting the discharge/admit diagnosis, lab results, radiology results, the need for outpatient follow up, to return to the emergency department if symptoms worsen or persist or if there are any questions or concerns that arise at home. Special discussion: I discussed with the patient/guardian in detail that at this point there is no indication for admission to the hospital. It is understood, however, that if the symptoms persist or worsen the patient needs to return immediately for re-evaluation. ED course: Return precautions given to patient and understands. . 02/17 11:11 Order name: CBC with Diff; Complete Time: 12:05 rn 02/17 11:11 Order name: CMP; Complete Time: 12:05 rn 02/17 13:00 Order name: CONS Pharmacy Consult [facility] 02/17 13:02 Order name: Consult call center nurse-Selene Mensah MD (Obstetrics/Gynecology) rn Administered Medications: 14:15 Drug: Methotrexate 86 mg Route: IM; Site: right gluteus; sv 14:30 Follow up: Response: No adverse reaction sv Disposition: 02/17/18 13:30 Discharged to Home. Impression: Ectopic . - Condition is Stable. - Discharge Instructions: Ectopic . - Medication Reconciliation Form, Thank You Letter, Antibiotic Education, Prescription Opioid Use form. - Follow up: Selene Mensah MD; When: 02/21/2018; Reason: Recheck today's complaints, Continuance of care, Re-evaluation by your physician. - Problem is new. - Symptoms are unchanged. Signatures: Dispatcher [employer] [facility] Yodit Urbina RN RN sv Gay, Steven, RN RN sg Benito Palumbo MD MD rn Hall, Patricia, RN RN ph Corrections: (The following items were deleted from the chart) 14:34 13:30 02/17/2018 13:30 Discharged to Home. Impression: Ectopic . Condition is ph Stable. Forms are Medication Reconciliation Form, Thank You Letter, Antibiotic Education, Prescription Opioid Use. Follow up: Selene Mensah; When: 02/21/2018; Reason: Recheck today's complaints, Continuance of care, Re-evaluation by your physician. Problem is new. Symptoms are unchanged. rn
[2018-02-17] MEDS ORDERED: METHOTREXATE 25 MG/ML VIAL IM ONE (14:00)
== END 2018-02-17 14:34 | disposition home or self-care (01) ==
LOC: ER 11:02
DX: O00.90 Unspecified ectopic pregnancy without intrauterine pregnancy (principal); F17.200 Nicotine dependence, unspecified, uncomplicated
CPT/HCPCS: 36415; 80053; 85025; 96372; 99284

== ENCOUNTER 2018-06-12 23:24 | Emergency (ER) | payer OTHER ==
[2018-06-13 00:02] LABS: Absolute Lymphocytes (CBC) 2.9 K/uL (0.7-4.9); Absolute Monocytes 0.8 K/uL (0.1-1.3); Absolute Neutrophil 5.5 K/uL (1.8-8.0); Basophils % 1.1 % (0-1.3); Eosinophils % 1.5 % (0-4.4); Hematocrit 38.9 % (36.0-45.0); Lymphocytes % 31.1 % (15.3-44.8); MPV 7.6 fL (7.6-11.3); RBC Red Blood Cell Count 4.32 M/uL (3.86-4.86)
[2018-06-13 00:03] LABS: Protime INR 1.08
[2018-06-13 00:11] LABS: ALT/SGPT 16 U/L (12-78); AST/SGOT 12 U/L (15-37); Albumin 3.6 g/dL (3.4-5.0); Alkaline Phosphatase 63 U/L (45-117); BUN Blood Urea Nitrogen 8 mg/dL (7-18); Bicarbonate 19 mmol/L (21-32); Bilirubin Direct 0.1 mg/dL (0-0.2); Bilirubin Total 0.5 mg/dL (0.2-1.0); Glucose Level 194 mg/dL (74-106); Potassium 3.6 mmol/L (3.5-5.1); Protein, Total 6.5 g/dL (6.4-8.2); Sodium Level 140 mmol/L (136-145)
[2018-06-13] MEDS ORDERED: NA CHLORIDE 0.9% 1,000 ML ONE ×3 (01:06→02:31)
[2018-06-13] MEDS ORDERED: GLUCAGON 1 MG/VIAL ONE (01:06)
[2018-06-13] MEDS ORDERED: DOPAMINE/D5W 400 MG/250 ML BAG IV ONE (02:14)
[2018-06-13] MEDS ORDERED: ONDANSETRON 4 MG/2 ML VIAL ONE (02:31)
[2018-06-13 02:38] LABS: Barbiturates NEGATIVE (NEGATIVE); Benzodiazepines NEGATIVE (NEGATIVE); Cocaine NEGATIVE (NEGATIVE); METHAMPHETAM POSITIVE (NEGATIVE); Methadone NEGATIVE (NEGATIVE); Opiates NEGATIVE (NEGATIVE); Phencyclidine NEGATIVE (NEGATIVE); THC Cannibis POSITIVE (NEGATIVE)
--- NOTE | 2018-06-13 04:29 | ER ---
Nurse's Notes [facility] Name: Pamela Torres Age: 27 yrs Sex: Female : 1990 Arrival Date: 06/12/2018 Time: 23:31 Bed 3 Private MD: Diagnosis: beta nannette overdose Presentation: 06/12 23:25 Presenting complaint: EMS states: they were toned for overdose pt. They were told that fc pt took Atenolol 25 mg - 30 tablets and Bupropion XL 150 mg - 40 tablets during the evening time today. Upon their arrival pt was cold to touch, diaphoretic and SBP 72. Transition of care: patient was not received from another setting of care. Onset of symptoms was June 12, 2018. Risk Assessment: Do you want to hurt yourself or someone else? Patient reports desire/thoughts of hurting themselves or someone else. Provider notified. Initial Sepsis Screen: Does the patient meet any 2 criteria? No. Patient's initial sepsis screen is negative. Does the patient have a suspected source of infection? No. Patient's initial sepsis screen is negative. Care prior to arrival: Medication(s) given: Glucagon, Normal saline infusion, 300 ml IV initiated. 18 GA, in the right antecubital area, Glucose check: 177. 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 - Social history:: Smoking status: Patient uses tobacco products, smokes one pack cigarettes per day. Patient uses alcohol, street drugs, marijuana, Methamphetamine (Meth). - Ebola Screening: : Patient negative for fever greater than or equal to 101.5 degrees Fahrenheit, and additional compatible Ebola Virus Disease symptoms Patient denies exposure to infectious person Patient denies travel to an Ebola-affected area in the 21 days before illness onset. Screenin/28 23:25 Abuse screen: Denies threats or abuse. Nutritional screening: No deficits noted. Tuberculosis screening: No symptoms or risk factors identified. Fall Risk None identified. Assessment: 23:45 General: Appears in no apparent distress. unkempt, Behavior is agitated, drowsy, tl2 listless. Pain: Denies pain. Neuro: Level of Consciousness is obeys commands, listless, Oriented to person, place, time, situation, Speech is slurred. Cardiovascular: Denies chest pain, Rhythm is sinus rhythm. Respiratory: Airway is patent Respiratory effort is even, unlabored, Respiratory pattern is regular, symmetrical. GI: Reports vomiting. : No signs and/or symptoms were reported regarding the genitourinary system. Derm: Skin is clammy, Skin is pale. 06/13 00:06 Reassessment: Mental health deputy at bedside. Pt awake and obeys commands. tl2 00:35 Reassessment: Pt appeared to have a clonic seizure lasting a few seconds. Pt arousable tl2 after event. Vitals remain stable. MD notified and at bedside. MD ordered to continue to monitor pt and place on 100% O2. 00:59 Reassessment: Spoke with Starr with [facility] Poison control. Stated to closely tl2 monitor pt and treat BP with glucagon or vasopressors for refractory hypotension and atropine for bradycardia. Will repeat Salicylate level in 2 hours. MD notified of current vitals, new orders see OCT. 01:15 Reassessment: Pt appeared to have a tonic clonic seizure that lasted approximately 15 ea seconds. Pt arousable after event. Vital signs remain stable. MD notified, order to continue to monitor. 02:45 Reassessment: MD ordered to hold dopamine and to administer additional liter of fluid tl2 by pressure infusing. 02:49 Reassessment: Pt resting with eyes closed, respirations even and unlabored. Chest ea expansions even and symmetrical. Pt easily aroused with verbal stimulation, pt oriented to self. 03:12 Reassessment: Patient appears in no apparent distress at this time. Pt awake, pressure tl2 infusing 1 liter of NS. 04:45 Reassessment: Pt became increasingly agitated and tried to get out of bed and pull out tl2 marlow. EMS ETA 10 minutes. MD ordered 1 mg IV Ativan and to start epinephrine drip. 04:45 Reassessment: Attempted to call report to [facility] spoke to Flex TA, reported he did ea not have pt on record for admit. Transferred to charge nurse Cheli TA, stated she would call back to get report in 15 minutes. Transfer center instructed to call back to transfer center after 10 minutes if no call back from nurse for report. 05:04 Reassessment: Attempted to call report to [facility] nurse, spoke to Karla TA and was ea placed on hold, line was disconnected. Nuria from transfer center attempted to call floor x 2. Nurse reported she could not take report at this moment. Nuria stated to send the patient. 05:21 Reassessment: Cheli TA from [facility] called for report on patient. [place] [facility] at facility for transfer. Pt taken via stretcher, pt tolerating well. Psych: 06/12 23:38 Subjective: Patient's mood is elevated, Delusions are denied, Hallucinations are denied fc Having thoughts of suicide. Plan for suicide is overdose. Objective: Patient is uncooperative, defensive, using poor eye contact, restless, Speech is rambling, Affect is inappropriate, Patient has mutilated themselves by cuts to both wrist. Interventions: Removed personal items and placed in bag. Patient placed in hospital gown. Suicide Risk Assessment: Sad Person Scale: Sex of patient: Female: Score 0 points. Age of patient: Score 1 point if patient 15-34. Depression: Score 1 point if signs of depression are present. Previous Attempt: Score 1 point if patient has previously attempted suicide. Substance Abuse: Score 1 point if patient abuses alcohol or drugs. Rational Thinking: Score 1 point if patient is lacking rational thinking. Social Support: Score 1 point if social support is lacking and/or unavailable. Organized Plan: Score 1 point if patient had a plan in place. Relationship: Score 1 point if patient is , , , or for a single male Chronic Sickness: Score 0 point if patient does not have a chronic illness, debilitating, or severe disorder. TOTAL POINTS: If total points are 7-10, the proposed clinical action is to hospitalize or commit. Implement suicide precautions. Safety Checks: Personal items have been removed. Door is open. No visitors are present at this time. Patient uses Patient uses marijuana Patient uses methamphetamines Patient uses tobacco. 23:50 Commitment: Patient will be a voluntary commitment. tl2 Vital Signs: 23:25 BP 94 / 68; Pulse 74; Resp 18; Temp 97.7(O); Pulse Ox 99% on R/A; Weight 68.04 kg (R); tl2 Height 5 ft. 2 in. (157.48 cm) (R); Pain 0/10; 23:44 BP 90 / 69; Pulse 65; Resp 21; Pulse Ox 99% on R/A; tl2 06/13 00:05 BP 88 / 76; Pulse 61; Resp 18; Pulse Ox 100% on R/A; tl2 00:19 BP 92 / 61; Pulse 64; Resp 20; Pulse Ox 100% on R/A; tl2 00:37 BP 88 / 62; Pulse 66; Resp 20; Pulse Ox 100% on R/A; tl2 01:18 BP 91 / 67; Pulse 73; Resp 18; Pulse Ox 99% on 2 lpm NC; tl2 01:33 BP 103 / 57; Pulse 66; Resp 20; Pulse Ox 100% ; ea 02:11 BP 82 / 56; Pulse 63; Resp 25; Temp 95.8; Pulse Ox 100% on 2 lpm NC; tl2 02:39 BP 98 / 50; Pulse 68; Resp 18; Temp 95.8(C); Pulse Ox 100% 2 lpm ; tl2 03:11 BP 97 / 67; Pulse 67; Resp 19; Temp 95.7(C); Pulse Ox 100% on 2 lpm NC; tl2 03:58 BP 91 / 72; Pulse 63; Resp 20; Pulse Ox 99% on 2 lpm NC; tl2 04:10 BP 99 / 67; Pulse 67; Resp 25; Temp 95.8(C); Pulse Ox 100% on 2 lpm NC; tl2 06/12 23:25 Body Mass Index 27.44 (68.04 kg, 157.48 cm) tl2 Vitals: 06/12 23:45 Cardiac Rhythm Assessment Sinus rhythm. tl2 ED Course: 23:25 Arm band placed on Patient placed in an exam room, on a stretcher. fc 23:25 Patient has correct armband on for positive identification. Placed in gown. Bed in low fc position. Call light in reach. Side rails up X2. child psychiatrist on. Pulse ox on. NIBP on. 23:25 Maintain EMS IV. Dressing intact. Good blood return noted. Site clean \T\ dry. Gauge \T\ fc site: 18 gauge to right a/c. 23:31 Patient arrived in ED. fc 23:32 Zohaib Ng MD is Attending Physician. tw4 23:36 Triage completed. fc 23:44 Jayla Wright, CELY is Primary Nurse. tl2 06/13 00:15 Safety checks: Items removed: yes. Door open/sign placed on door: yes. Family/friend oe present: yes. Sitter present: Yes. 00:30 Safety checks: Items removed: yes. Door open/sign placed on door: yes. Family/friend oe present: yes. Sitter present: Yes. 00:45 Safety checks: Items removed: yes. Door open/sign placed on door: yes. Family/friend oe present: yes. Sitter present: Yes. 01:00 Safety checks: Items removed: yes. Door open/sign placed on door: yes. Family/friend oe present: yes. Sitter present: Yes. 01:15 Safety checks: Items removed: yes. Door open/sign placed on door: yes. Family/friend oe present: yes. Sitter present: Yes. 01:19 Marlow cath inserted, using sterile technique, 16 Fr., by ri, balloon inflated, to tl2 gravity drainage, urine specimen collected. returned clear yellow urine. Patient tolerated well. Inserted saline lock: 20 gauge in left wrist, using aseptic technique. 01:30 Safety checks: Items removed: yes. Door open/sign placed on door: yes. Family/friend oe present: yes. Sitter present: Yes. 01:45 Safety checks: Items removed: yes. Door open/sign placed on door: yes. Family/friend oe present: yes. Sitter present: Yes. 02:00 Safety checks: Items removed: yes. Door open/sign placed on door: yes. Family/friend oe present: yes. Sitter present: Yes. 02:00 Thermoregulation: Dawson blanket applied. tl2 02:15 Safety checks: Items removed: yes. Door open/sign placed on door: yes. Family/friend oe present: yes. Sitter present: Yes. 02:30 Safety checks: Items removed: yes. Door open/sign placed on door: yes. Family/friend oe present: yes. Sitter present: Yes. 02:45 Safety checks: Items removed: yes. Door open/sign placed on door: yes. Family/friend oe present: yes. Sitter present: Yes. 03:00 Safety checks: Items removed: yes. Door open/sign placed on door: yes. Family/friend oe present: yes. Sitter present: Yes. 03:15 Safety checks: Items removed: yes. Door open/sign placed on door: yes. Family/friend oe present: yes. Sitter present: Yes. 03:30 Safety checks: Items removed: yes. Door open/sign placed on door: yes. Family/friend oe present: yes. Sitter present: Yes. 03:45 Safety checks: Items removed: yes. Door open/sign placed on door: yes. Family/friend oe present: yes. Sitter present: Yes. 04:00 Safety checks: Items removed: yes. Door open/sign placed on door: yes. Family/friend oe present: yes. Sitter present: Yes. 04:15 Safety checks: Items removed: yes. Door open/sign placed on door: yes. Family/friend oe present: yes. Sitter present: Yes. 04:30 Safety checks: Items removed: yes. Door open/sign placed on door: yes. Family/friend oe present: yes. Sitter present: Yes. 04:45 Safety checks: Items removed: yes. Door open/sign placed on door: yes. Family/friend oe present: yes. Sitter present:. 05:00 Safety checks: Items removed: yes. Door open/sign placed on door: yes. Family/friend oe present: yes. Sitter present: Yes. 05:18 No provider procedures requiring assistance completed. Patient transferred, IV remains tl2 in place. Administered Medications: 01:02 Drug: NS 0.9% 1000 ml Route: IV; Rate: 1 bolus; Site: right antecubital; tl2 02:15 Follow up: Response: No adverse reaction; IV Status: Completed infusion; IV Intake: ea 1000ml 01:17 Drug: Glucagon 1 mg Route: IVP; Site: left wrist; tl2 02:10 Follow up: Response: No adverse reaction ea 01:56 Drug: NS 0.9% 1000 ml Route: IV; Rate: 1 bolus; Site: left wrist; ea 02:30 Follow up: IV Status: Completed infusion; IV Intake: 1000ml ea 02:29 Drug: NS 0.9% 1000 ml Route: IV; Rate: 1 bolus; Site: left wrist; tl2 03:56 Follow up: Response: No adverse reaction; IV Status: Completed infusion; IV Intake: ea 1000ml 02:29 Drug: Zofran 4 mg Route: IVP; Site: left wrist; tl2 03:57 Follow up: Response: No adverse reaction; Marked relief of symptoms ea 05:12 Not Given (Physician Discretion): Dopamine drip 5 mcg/kg/min - (DOPamine 400 mg, D5W tl2 250 ml) IV at calculated rate continuous; Titrate to keep systolic blood pressure greater than 90mmHg 05:14 Drug: Epinephrine Drip - (EPINEPHrine (PF) 4 mg, Sodium Chloride 0.9% 250 ml) Route: tl2 IV; Rate: 1 mcg/min; Site: left wrist; 05:14 Follow up: IV Status: Infusion continued upon transfer tl2 05:14 Drug: Ativan 1 mg Route: IVP; Site: left wrist; tl2 05:14 Follow up: Response: No adverse reaction tl2 Intake: 02:15 IV: 1000ml; Total: 1000ml. ea 02:30 IV: 1000ml; Total: 2000ml. ea 03:56 IV: 1000ml; Total: 3000ml. ea Outcome: 04:29 ER care complete, transfer ordered by . tw4 05:18 Transferred by [facility] to [facility], Transfer form completed. tl2 05:18 Condition: unchanged 05:18 Discharge instructions given to patient, family, Instructed on the need for transfer. 05:23 Patient left the ED. ea Signatures: Rochelle See RN RN Jayla Wright RN RN tl2 Cecilio Reaves Elena, RN RN Zohaib Mead MD MD tw4 Corrections: (The following items were deleted from the chart) 06/12 23:44 23:25 BP 94 / 68; Pulse 74bpm; Resp 18bpm; Pulse Ox 99% RA; Temp 97.2F Oral; 68.04 kg tl2 Reported; Height 5 ft. 2 in. Reported; BMI: 27.4; Pain 0/10; fc 06/13 01:11 00:36 Safety checks: Items removed: yes. Door open/sign placed on door: yes. oe Family/friend present: yes. Sitter present: Yes. oe 02:26 02:18 Safety checks: Items removed: Door open/sign placed on door: oe oe 05:11 05:09 Reassessment: Pt became increasingly agitated and tried to get out of bed and tl2 pull out marlow. EMS ETA 10 minutes. MD ordered 1 mg IV Ativan and to start epinephrine drip tl2
--- NOTE | 2018-06-13 04:30 | EDPHYS ---
Physician Documentation [facility] Name: Pamela Torres Age: 27 yrs Sex: Female : 1990 Arrival Date: 06/12/2018 Time: 23:31 Bed 3 Private MD: ED Physician Zohaib Ng HPI: 06/13 02:13 This 27 yrs old Female presents to ER via EMS with complaints of Suicidal tw4 Ideation. 02:13 The patient presents to the emergency department with suicide ideation, and the patient tw4 has a plan, to overdose with medications. Onset: The symptoms/episode began/occurred today. Past psychiatric history: Prior diagnosis: bipolar disorder, depression. Associated signs and symptoms: The patient has no apparent associated signs or symptoms. Severity of symptoms: At their worst the symptoms were moderate in the emergency department the symptoms are unchanged. Unable to obtain HPI due to altered mental status. The patient has not experienced similar symptoms in the past. 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 - Social history:: Smoking status: Patient uses tobacco products, smokes one pack cigarettes per day. Patient uses alcohol, street drugs, marijuana, Methamphetamine (Meth). - Ebola Screening: : Patient negative for fever greater than or equal to 101.5 degrees Fahrenheit, and additional compatible Ebola Virus Disease symptoms Patient denies exposure to infectious person Patient denies travel to an Ebola-affected area in the 21 days before illness onset. ROS: 02:13 Constitutional: Negative for fever, chills, and weight loss, Eyes: Negative for injury, tw4 pain, redness, and discharge, Cardiovascular: Negative for chest pain, palpitations, and edema, Respiratory: Negative for shortness of breath, cough, wheezing, and pleuritic chest pain, Abdomen/GI: Negative for abdominal pain, nausea, vomiting, diarrhea, and constipation, Back: Negative for injury and pain. 02:13 Psych: Positive for drug dependence, suicide gesture, suicidal ideation. Exam: 02:13 Head/Face: Normocephalic, atraumatic. Eyes: Pupils equal round and reactive to light, tw4 extra-ocular motions intact. Lids and lashes normal. Conjunctiva and sclera are non-icteric and not injected. Cornea within normal limits. Periorbital areas with no swelling, redness, or edema. Chest/axilla: Normal chest wall appearance and motion. Nontender with no deformity. No lesions are appreciated. Cardiovascular: Regular rate and rhythm with a normal S1 and S2. No gallops, murmurs, or rubs. Normal PMI, no JVD. No pulse deficits. Respiratory: Lungs have equal breath sounds bilaterally, clear to auscultation and percussion. No rales, rhonchi or wheezes noted. No increased work of breathing, no retractions or nasal flaring. Abdomen/GI: Soft, non-tender, with normal bowel sounds. No distension or tympany. No guarding or rebound. No evidence of tenderness throughout. MS/ Extremity: Pulses equal, no cyanosis. Neurovascular intact. Full, normal range of motion. Neuro: Awake and alert, GCS 15, oriented to person, place, time, and situation. Cranial nerves II-XII grossly intact. Motor strength 5/5 in all extremities. Sensory grossly intact. Cerebellar exam normal. Normal gait. 02:13 Constitutional: The patient appears diaphoretic, obviously ill, restless. Vital Signs: 06/12 23:25 BP 94 / 68; Pulse 74; Resp 18; Temp 97.7(O); Pulse Ox 99% on R/A; Weight 68.04 kg (R); tl2 Height 5 ft. 2 in. (157.48 cm) (R); Pain 0/10; 23:44 BP 90 / 69; Pulse 65; Resp 21; Pulse Ox 99% on R/A; tl2 06/13 00:05 BP 88 / 76; Pulse 61; Resp 18; Pulse Ox 100% on R/A; tl2 00:19 BP 92 / 61; Pulse 64; Resp 20; Pulse Ox 100% on R/A; tl2 00:37 BP 88 / 62; Pulse 66; Resp 20; Pulse Ox 100% on R/A; tl2 01:18 BP 91 / 67; Pulse 73; Resp 18; Pulse Ox 99% on 2 lpm NC; tl2 01:33 BP 103 / 57; Pulse 66; Resp 20; Pulse Ox 100% ; ea 02:11 BP 82 / 56; Pulse 63; Resp 25; Temp 95.8; Pulse Ox 100% on 2 lpm NC; tl2 02:39 BP 98 / 50; Pulse 68; Resp 18; Temp 95.8(C); Pulse Ox 100% 2 lpm ; tl2 03:11 BP 97 / 67; Pulse 67; Resp 19; Temp 95.7(C); Pulse Ox 100% on 2 lpm NC; tl2 03:58 BP 91 / 72; Pulse 63; Resp 20; Pulse Ox 99% on 2 lpm NC; tl2 04:10 BP 99 / 67; Pulse 67; Resp 25; Temp 95.8(C); Pulse Ox 100% on 2 lpm NC; tl2 06/12 23:25 Body Mass Index 27.44 (68.04 kg, 157.48 cm) tl2 MDM: 06/12 23:32 Patient medically screened. tw4 06/13 04:31 Differential diagnosis: drug withdrawal. acute psychotic break, depression. Data tw4 reviewed: vital signs, nurses notes. Data interpreted: conveyor monitor: rhythm is normal sinus rhythm, Pulse oximetry: Interpretation: normal. Test interpretation: by ED physician or midlevel provider: ECG. Counseling: I had a detailed discussion with the patient and/or guardian regarding: the historical points, exam findings, and any diagnostic results supporting the discharge/admit diagnosis. Response to treatment: There is no appreciated change of the patient's symptoms at this time. ED course: Pt presented to ED after hx of taking unknown quantity of Atenolol 25mg and bupropion. Pt remained hypotensive despite 3L NS boluses. Pt given also glucagon 1mg IVP with continued hypotension. Pt had two tonic seizures in the ED. Will need to transfer to ICU at [facility] the [facility] as there are no ICU here currently. D/W Dr Tee who agrees with treatment plan and transfer. We will start pt on epi drip.. 06/12 23:34 Order name: Acetaminophen; Complete Time: 04:07 tw4 06/12 23:34 Order name: Basic Metabolic Panel; Complete Time: 04:07 tw4 06/12 23:34 Order name: CBC with Diff; Complete Time: 04:07 tw4 06/12 23:34 Order name: ETOH Level; Complete Time: 04:07 06/12 23:34 Order name: Hepatic Function; Complete Time: 04:07 06/12 23:34 Order name: PT-INR; Complete Time: 04:07 06/12 23:34 Order name: Ptt, Activated; Complete Time: 04:07 06/12 23:34 Order name: Salicylate; Complete Time: 04:07 06/12 23:34 Order name: Urine Drug Screen; Complete Time: 04:07 06/13 04:15 Order name: Urine Dipstick--Ancillary (enter results) ms 06/13 04:15 Order name: Urine --Ancillary (enter results) ms 06/12 23:34 Order name: Urine Test (obtain specimen); Complete Time: 01:18 06/12 23:34 Order name: EKG; Complete Time: 23:36 06/12 23:34 Order name: EKG - Nurse/Tech; Complete Time: 23:34 06/12 23:34 Order name: IV Saline Lock; Complete Time: 23:34 06/12 23:34 Order name: Labs collected and sent; Complete Time: 23:43 06/12 23:34 Order name: Urine Dipstick-Ancillary (obtain specimen); Complete Time: 01:18 Administered Medications: 01:02 Drug: NS 0.9% 1000 ml Route: IV; Rate: 1 bolus; Site: right antecubital; tl2 02:15 Follow up: Response: No adverse reaction; IV Status: Completed infusion; IV Intake: ea 1000ml 01:17 Drug: Glucagon 1 mg Route: IVP; Site: left wrist; tl2 02:10 Follow up: Response: No adverse reaction ea 01:56 Drug: NS 0.9% 1000 ml Route: IV; Rate: 1 bolus; Site: left wrist; ea 02:30 Follow up: IV Status: Completed infusion; IV Intake: 1000ml ea 02:29 Drug: NS 0.9% 1000 ml Route: IV; Rate: 1 bolus; Site: left wrist; tl2 03:56 Follow up: Response: No adverse reaction; IV Status: Completed infusion; IV Intake: ea 1000ml 02:29 Drug: Zofran 4 mg Route: IVP; Site: left wrist; tl2 03:57 Follow up: Response: No adverse reaction; Marked relief of symptoms ea 05:12 Not Given (Physician Discretion): Dopamine drip 5 mcg/kg/min - (DOPamine 400 mg, D5W tl2 250 ml) IV at calculated rate continuous; Titrate to keep systolic blood pressure greater than 90mmHg 05:14 Drug: Epinephrine Drip - (EPINEPHrine (PF) 4 mg, Sodium Chloride 0.9% 250 ml) Route: tl2 IV; Rate: 1 mcg/min; Site: left wrist; 05:14 Follow up: IV Status: Infusion continued upon transfer tl2 05:14 Drug: Ativan 1 mg Route: IVP; Site: left wrist; tl2 05:14 Follow up: Response: No adverse reaction tl2 Disposition: 06/13/18 04:29 Transfer ordered to [facility]. Diagnosis is beta nannette overdose. - Reason for transfer: Higher level of care. - Accepting physician is Dr Tee. - Condition is Stable. - Problem is new. - Symptoms are unchanged. Signatures: Dispatcher [employer] EDRochelle Johns RN RN Jayla Aguilar RN RN tl2 Marysol Thacker RN RN ea Wadley, Terrence, MD MD tw4 Corrections: (The following items were deleted from the chart) 05:23 04:29 06/13/2018 04:29 Transfer ordered to [facility]. Diagnosis is ea beta nannette overdose. Reason for transfer: Higher level of care. Accepting physician is Dr Tee. Condition is Stable. Problem is new. Symptoms are unchanged. tw4
[2018-06-13 04:34] LABS: Urine Blood NEGATIVE (NEG); Urine Glucose NEGATIVE (NEG); Urine Protein 2+ (NEG); Urine Specific Gravity >1.030 (1.005-1.030)
[2018-06-13] MEDS ORDERED: LORazepam 2 MG/ML VIAL ONE (04:57)
[2018-06-13] MEDS ORDERED: EPINEPHRINE/PF 1 MG/ML AMP ONE (05:00)
[2018-06-13] MEDS ORDERED: NA CHLORIDE 0.9% 250 ML ONE (05:00)
--- NOTE | 2018-06-13 07:04 | EKG ---
Test Date: 2018-06-12 Test Time: 23:37:23 Transportation Officer: THANH MEASUREMENT RESULTS: Intervals: Rate: 64 VT: 174 QRSD: 94 QT: 464 QTc: 478 Seibert: P: 20 VT: 174 QRS: 72 T: 48 INTERPRETIVE STATEMENTS: Normal sinus rhythm Normal ECG Compared to ECG 05/11/2008 10:48:59 Sinus arrhythmia no longer present Electronically Signed On 06-13-18 07:03:23 CDT by Shon Hair
== END 2018-06-13 05:23 | disposition short-term general hospital (02) ==
LOC: ER 23:24
DX: T50.992A Poisoning by other drugs, medicaments and biological substances, intentional self-harm, initial encounter (principal); Y92.9 Unspecified place or not applicable; F17.210 Nicotine dependence, cigarettes, uncomplicated; F31.9 Bipolar disorder, unspecified
CPT/HCPCS: 36415; 51702; 80048; 80076; 80307; 80320; 80329; 81003; 81025; 85025; 85610; 85730; 93005; 96361; 96374; 96375; 99285; J0171; J1265; J1610; J2405; J7030

== ENCOUNTER 2022-10-04 07:45 | Emergency (ER) | payer OTHER, SELFPAY ==
--- OUTSIDE RECORDS SUMMARY | 2022-10-04 07:48 | XMS REPORT | Continuity of Care Document ---
:1990 Author Organization [facility] t Address [address] [place] [address] Care Team Providers Name Role Phone Pcp, Patient Does Not Have A Primary Care Physician [phone] VALENTINA RAMOS Attending Clinician Unavailable Mariza Nolasco RN Attending Clinician Unavailable CASSIUS FISHMAN Attending Clinician Unavailable CORKY GRAY Attending Clinician Unavailable DUNIA VENTURA Attending Clinician Unavailable ALFREDO BARTH Attending Clinician Unavailable CASSIUS FISHMAN Admitting Clinician Unavailable ALFREDO BARTH Admitting Clinician Unavailable Payers Payer Name Policy Type Policy Number Effective Date Expiration Date Germán bustillo [place] [facility] [id number] 2020 HEALTH 00:00:00 [place] [id number] 2018 00:00:00 Problems Condition Condition Condition Status Onset Resolution Last Treating Co mments Source Name Details Category Date Date Treatment Clinician Date Liveborn Liveborn Disease Active Unive rs , of infant, of 6-09 it y of [place] , , 00 Me dical born in born in [facility] by vaginal by vaginal delivery delivery Decreased Decreased Disease Active Uni vers 6-08 ity of movement movement 00:00: [place] affecting affecting 00 Medi miki management management Br anch of mother, of mother, antepartum antepartum Trichomona Trichomona Disease Active U nivers s s 5-31 ity of vaginitis vag[facility] 00:[facility]: [facility] Vaginal Vaginal Disease Active Univers lesion lesion 5-31 ity of 00:00: [place] [facility] 38 weeks 38 weeks Disease Active Unive rs gestation gestation 5-30 ity of of of 00:00: [place] 00 [facility] Round Round Disease Active Univers ligament ligament 5-10 ity of pain pain 00:00: [place] [facility] Abnormal Abnormal Disease Active Last Unive rs maternal maternal 4-12 Assessmen ity of glucose glucose 00:00: t & Plan: [place] tolerance, tolerance, [facility] antepartum antepartum g of this Branch note might be different from the original. 3 hr wnl Obesity Obesity Disease Active 2019-08 Univers (BMI (BMI 1-23 ity of 30-39.9) 30-39.9) 00:00: [place] [facility] High-risk High-risk Disease Active 2019-08 Uni vers 1-23 ity of in third in third 00:00: [place] trimester trimester 00 [facility] History of History of Disease Active 2019-08 U maurizio substance substance 1-23 ity of use use 00:00: [place] [facility] Smoking Smoking Disease Active 2019-08 Univers trying to trying to 1-23 ity of quit quit 00:00: [place] [id number] Medical Branch History of History of Disease Active 2019-08 U maurizio psychiatri psychiatri 1-23 it y of c care c care 00:00: [place] [facility] Overdose [facility] Overdose Overdose Disease [facility] 2017[facility] beta-adren beta-adren 00:00: Me dical ergic ergic 00 [place] antagonist antagonist drug drug Seizure Seizure Disease Active 2017-[address] [facility] [facility] Allergies, Adverse Reactions, Alerts Allergy Allergy Status Severity Reaction(s) Onset Inactive Treating Comm ents Source Name Type Date Date Clinician NO KNOWN Drug Active Univers ALLERGIE Class ity of S [facility] Family History Family Member Diagnosis Comments Start Date Stop Date Source Natural father Arthritis [facility] Maternal grandfather Cancer [facility] Social History Social Habit Start Date Stop Date Quantity Comments Source History of tobacco Cigarette Smoker University of [facility] [place] History SDOH 2020-07-08 2020-07-08 1 University o f Alcohol Frequency 00:00:00 00:00:00 [place] [facility] History SDOH 2020-07-08 2020-07-08 99 University o f Alcohol Std Drinks 00:00:00 00:00:00 [place] [facility] [place] History SDOH 2020-07-08 2020-07-08 1 University o f Alcohol Binge 00:00:00 00:00:00 [place] [facility] Tobacco Comment 2020-07-08 2020-07-08 currently 5 Universi ty of 00:00:00 00:00:00 ciggs a day [facility] Alcohol intake 2018-06-14 2018-06-14 [facility] (finding) Cigarettes smoked 2018-06-13 2018-06-[address] [facility] current (pack per 00:00:00 00:00:00 Medical Center day) - Reported Tobacco use and 2018-06-13 2018-06-[address] [facility] exposure 00:00:00 00:00:00 [facility] Sex Ass[birth year] At [birth year] [facility] kes 00:00:00 00:00:00 [facility] Smoking Status Start Date Stop Date Source Current some day smoker 2021-01-22 00:00:00 [facility] Current every day smoker 2018-06-13 00:00:00 [facility] Medications Ordered Filled Start Stop Current Ordering Indication Dosage Frequency Signature Comments Components Source Medication Medication Date Date Medication? Clinician (SIG) Name Name PN Yes 1{tbl} Take 1 Univers 102-iron-fo 6-14 tablet by ity of late-dha 00:00: mouth [place] (VITAFOL FE 00 daily. Medica l PLUS) 90 mg Branch iron- 1 mg-200 mg Cap docusate Yes [id number] 240mg Take 1 U nivers calcium 240 6-10 capsule by it y of mg capsule 00:00: mouth [place] 00 daily as Medical needed for Branch Constipati on. ferrous Yes [id number] 325mg Take 1 Un ward sulfate 325 6-10 tablet by ity of mg (65 mg 00:00: mouth 2 [place] iron) 00 (two) Medical tablet times Branch daily. ibuprofen Yes [id number] 600mg Take 1 Univers 600 mg 6-10 tablet by ity of tablet 00:00: mouth [place] 00 every 6 Medical (six) Branch hours as needed (Pain). Take with food or milk. Immunizations Ordered Filled Immunization Date Status Comments [facility] e Immunization Name Name EDUIN 2020 Completed [facility] 00:00:00 [facility] Procedures This patient has no known procedures. Encounters Start End Encounter Admission Attending Care Care Encounter Source Date/Time Date/Time Type Type Clinicians Facility Department ID 2021-06-15 Outpatient [facility] [id number] Univers 22:11:55 ity [facility] 2021-06-15 Emergency [facility] [id number] Univers 22:11:37 ity [facility] 2021-06-15 Outpatient [facility] [id number] Univers 22:11:37 ity [facility] 2021-04-21 2021-04-21 Outpatient Danuta RAMOS [facility] [id number] Univers 17:20:00 17:20:00 VALENTINA brewer o f [facility] 2021-04-21 2021-04-21 Nurse Mariza Nolasco [id number] Univers 00:00:00 00:00:00 Triage RICHY [id number] it [facility] [id number] [place] [phone] [address] 2021-03-04 2021-03-04 Outpatient CASSIUS GARCIA [facility] [id number] Univers 15:30:00 15:30:00 ity [facility] 2021-01-21 2021-01-21 Outpatient Danuta FISHMAN CASSIUS [facility] [id number] Univers 13:45:00 13:45:00 ity [facility] 2021-01-14 2021-01-14 Outpatient Danuta FISHMAN CASSIUS [facility] [id number] Univers 13:45:00 13:45:00 ity [facility] 2021-01-14 2021-01-14 Outpatient CASSIUS GARCIA [facility] [id number] Univers 09:30:00 09:30:00 ity [facility] 2021-01-08 2021-01-08 Outpatient CASSIUS GARCIA [facility] [id number] Univers 09:00:00 09:00:00 ity [facility] 2021-01-07 2021-01-07 Outpatient R MARINA [facility] [id number] Univers 08:15:00 08:15:00 [facility] 2020-12-23 2020-12-23 Outpatient R KYE CASSIUS [facility] [id number] Univers [facility]:15[facility] 2020-12-09 Outpatient R MARINA [facility] [id number] Univers 11:00:00 11:00:00 [facility] 2020-12-02 2020-12-02 Outpatient CASSIUS GARCIA [facility] [id number] Univers 08:30:00 08:30:00 ity [facility] 2020-11-28 2020-11-28 Outpatient R [facility] [id number] Univers [facility]:15[facility] 2020-11-25 Outpatient CASSIUS GARCIA [facility] [id number] Univers 10:15:[facility] 2020-11-22 2020-11-22 Outpatient CASSIUS GARCIA [facility] [id number] Univers 08:00:00 08:00:00 ity [facility] 2020 2020 Outpatient R CASSIUS FISHMAN [facility] [id number] Univers [facility]:00[facility] 2020-10-14 2020-10-14 Outpatient R MARINA [facility] [id number] Univers 16:00:00 16:00:00 [facility] 2020-09-30 2020-09-30 Outpatient R MARINA [facility] [id number] Univers 13:00:00 13:00:00 CORKY adair [facility] 2020-09-11 2020-09-11 Outpatient R [facility] [id number] Univers 14:15:00 14:15:00 [facility] 2020-09-04 2020-09-04 Outpatient R CASSIUS FISHMAN [facility] [id number] Univers 09:45:00 09:45:00 [facility] 2020-08-31 2020-08-31 Outpatient R AUDREY [facility] [id number] Univers 18:00:00 18:00:00 DUNIA brewer o f [facility] 2020-08-05 2020-08-05 Outpatient R WILNERKINSEY [facility] [id number] Univers 14:30:00 14:30:00 CORKY [facility] 2020-07-19 2020-07-19 Outpatient R [facility] [id number] Univers 09:45:00 09:45:00 [facility] 2020-07-08 2020-07-08 Outpatient R CASSIUS FISHMAN [facility] [id number] Univers 14:30:00 14:30:00 [facility] Results Test Description Test Time Test Comments Results Result Comments Source BASIC METABOLIC PANEL 2018-06-20 06:36:00 Test Item Value Reference Range Interpretation Comme nts SODIUM (BEAKER) (test code 139 meq/L 136-145 = 381) POTASSIUM (BEAKER) (test 4.6 meq/L 3.5-5.1 code = 379) CHLORIDE (BEAKER) (test 108 meq/L 98-107 H code = 382) CO2 (BEAKER) (test code = 26 meq/L 22-29 355) BLOOD UREA NITROGEN 14 mg/dL 7-21 (BEAKER) (test code = 354) CREATININE (BEAKER) (test 0.83 mg/dL 0.57-1.25 code = 358) GLUCOSE RANDOM (BEAKER) 94 mg/dL 70-105 (test code = 652) CALCIUM (BEAKER) (test code 9.6 mg/dL 8.4-10.2 = 697) EGFR (BEAKER) (test code = 81 mL/min/1.73 sq m ESTIMATED GFR IS NOT 1092) ACCURATE CRE ATININE CLEARANCE IN OR EDICTING GLOMERULAR FILT RATION RATE. ESTIMATED GFR IS NOT APPLICABLE FOR DIALYSIS PATIENTS. CBC W/PLT COUNT & AUTO [id number] 06:23:00 Test Item Value Reference Range Interpretation Comments WHITE BLOOD CELL COUNT (BEAKER) 5.9 K/ L 3.5-10.5 (test code = 775) RED BLOOD CELL COUNT (BEAKER) 4.87 M/ L 3.93-5.22 (test code = 761) HEMOGLOBIN (BEAKER) (test code = 14.6 GM/DL 11.2-15.7 410) HEMATOCRIT (BEAKER) (test code = 45.6 % 34.1-44.9 H 411) MEAN CORPUSCULAR VOLUME (BEAKER) 93.6 fL 79.4-94.8 (test code = 753) MEAN CORPUSCULAR HEMOGLOBIN 30.0 pg 25.6-32.2 (BEAKER) (test code = 751) MEAN CORPUSCULAR HEMOGLOBIN CONC 32.0 GM/DL 32.2-35.5 L (BEAKER) (test code = 752) RED CELL DISTRIBUTION WIDTH 12.8 % 11.7-14.4 (BEAKER) (test code = 412) PLATELET COUNT (BEAKER) (test 354 K/CU MM 150-450 code = 756) MEAN PLATELET VOLUME (BEAKER) 9.2 fL 9.4-12.3 L (test code = 754) NUCLEATED RED BLOOD CELLS 0 /100 WBC 0-0 (BEAKER) (test code = 413) NEUTROPHILS RELATIVE PERCENT 52 % (BEAKER) (test code = 429) LYMPHOCYTES RELATIVE PERCENT 35 % (BEAKER) (test code = 430) MONOCYTES RELATIVE PERCENT 10 % (BEAKER) (test code = 431) EOSINOPHILS RELATIVE PERCENT 3 % (BEAKER) (test code = 432) BASOPHILS RELATIVE PERCENT 0 % (BEAKER) (test code = 437) NEUTROPHILS ABSOLUTE COUNT 3.02 K/ L 1.56-6.13 (BEAKER) (test code = 670) LYMPHOCYTES ABSOLUTE COUNT 2.05 K/ L 1.18-3.74 (BEAKER) (test code = 414) MONOCYTES ABSOLUTE COUNT (BEAKER) 0.57 K/ L 0.24-0.36 H (test code = 415) EOSINOPHILS ABSOLUTE COUNT 0.19 K/ L 0.04-0.36 (BEAKER) (test code = 416) BASOPHILS ABSOLUTE COUNT (BEAKER) 0.02 K/ L 0.01-0.08 (test code = 417) IMMATURE GRANULOCYTES-RELATIVE 0 % 0-1 PERCENT (BEAKER) (test code = 2801) [id number] 07:21:00 Test Item Value Reference Range Interpretation Comments MAGNESIUM (BEAKER) (test code = 2.1 mg/dL 1.6-2.6 627) [id number] 07:21:00 Test Item Value Reference Range Interpretation Comments PHOSPHORUS (BEAKER) (test code = 5.1 mg/dL 2.3-4.7 H 604) BASIC METABOLIC [id number] 01:55:00 Test Item Value Reference Range Interpretation Comments SODIUM (BEAKER) 140 meq/L 136-145 (test code = 381) POTASSIUM (BEAKER) 4.0 meq/L 3.5-5.1 (test code = 379) CHLORIDE (BEAKER) 108 meq/L 98-107 H (test code = 382) CO2 (BEAKER) (test 22 meq/L 22-29 code = 355) BLOOD UREA NITROGEN 9 mg/dL 7-21 (BEAKER) (test code = 354) CREATININE (BEAKER) 0.78 mg/dL 0.57-1.25 (test code = 358) GLUCOSE RANDOM 113 mg/dL 70-105 H (BEAKER) (test code = 652) CALCIUM (BEAKER) 9.3 mg/dL 8.4-10.2 (test code = 697) EGFR (BEAKER) (test 87 mL/min/1.73 ESTIMA HOLLY GFR IS code = 1092) sq m NOT ACCURATE CREATININE CLEARANCE IN PREDICTING GLOMERULAR FILTRATION RATE . ESTIMATED GFR I S NOT APPLICABLE FOR DIALYSIS PATIEN TS. CBC W/PLT COUNT & AUTO [id number] 00:58:00 Test Item Value Reference Range Interpretation Comments WHITE BLOOD CELL COUNT (BEAKER) 7.1 K/ L 3.5-10.5 (test code = 775) RED BLOOD CELL COUNT (BEAKER) 4.26 M/ L 3.93-5.22 (test code = 761) HEMOGLOBIN (BEAKER) (test code = 13.0 GM/DL 11.2-15.7 410) HEMATOCRIT (BEAKER) (test code = 39.4 % 34.1-44.9 411) MEAN CORPUSCULAR VOLUME (BEAKER) 92.5 fL 79.4-94.8 (test code = 753) MEAN CORPUSCULAR HEMOGLOBIN 30.5 pg 25.6-32.2 (BEAKER) (test code = 751) MEAN CORPUSCULAR HEMOGLOBIN CONC 33.0 GM/DL 32.2-35.5 (BEAKER) (test code = 752) RED CELL DISTRIBUTION WIDTH 12.9 % 11.7-14.4 (BEAKER) (test code = 412) PLATELET COUNT (BEAKER) (test 302 K/CU MM 150-450 code = 756) MEAN PLATELET VOLUME (BEAKER) 9.2 fL 9.4-12.3 L (test code = 754) NUCLEATED RED BLOOD CELLS 0 /100 WBC 0-0 (BEAKER) (test code = 413) NEUTROPHILS RELATIVE PERCENT 46 % (BEAKER) (test code = 429) LYMPHOCYTES RELATIVE PERCENT 44 % (BEAKER) (test code = 430) MONOCYTES RELATIVE PERCENT 9 % (BEAKER) (test code = 431) EOSINOPHILS RELATIVE PERCENT 1 % (BEAKER) (test code = 432) BASOPHILS RELATIVE PERCENT 0 % (BEAKER) (test code = 437) NEUTROPHILS ABSOLUTE COUNT 3.22 K/ L 1.56-6.13 (BEAKER) (test code = 670) LYMPHOCYTES ABSOLUTE COUNT 3.09 K/ L 1.18-3.74 (BEAKER) (test code = 414) MONOCYTES ABSOLUTE COUNT (BEAKER) 0.64 K/ L 0.24-0.36 H (test code = 415) EOSINOPHILS ABSOLUTE COUNT 0.10 K/ L 0.04-0.36 (BEAKER) (test code = 416) BASOPHILS ABSOLUTE COUNT (BEAKER) 0.01 K/ L 0.01-0.08 (test code = 417) IMMATURE GRANULOCYTES-RELATIVE 0 % 0-1 PERCENT (BEAKER) (test code = 2801) CT, BRAIN, WITHOUT [id number] 15:28:00FINAL REPORT CT Head without contrast CLINICAL HISTORY: Seizures new or progressive TECHNIQUE: Contiguous axial images through the head without contrast. This exam was performed according to the departmental dose optimization program which includes automated exposure control, adjustment of the mA and/or kV according to the patient size, and/or use of an iterative reconstruction technique. COMPARISON: None FINDINGS: There is no CT evidence of acute infarct or intracranial hemorrhage. There is mild generalized parenchymal volume loss without hydrocephalus, midline shift, or apparent mass effect. There are no extra-axial fluid collections. The skull is intact. The visualized paranasal sinuses are well-aerated. IMPRESSION: No CT evidence of acute infarct, hemorrhage, or hydrocephalus. Signed: Piyush Lawson MDReport Verified Date/Time: 06/15/2018 15:28:07 Reading Location: [facility] [id number] Neuro Reading Room PREGNANCY SCREEN, [id number] 12:36:00 Test Item Value Reference Range Interpretation Comments TEST URINE (BEAKER) (test Negative code = 583) URINALYSIS W/ REFLEX URINE [id number] 10:25:00 Test Item Value Reference Range Interpretation Comments COLOR (BEAKER) (test code = 470) Yellow CLARITY (BEAKER) (test code = 469) Clear SPECIFIC GRAVITY UA (BEAKER) (test 1.011 1.001-1.035 code = 468) PH UA (BEAKER) (test code = 467) 7.0 5.0-8.0 PROTEIN UA (BEAKER) (test code = Negative Negative 464) GLUCOSE UA (BEAKER) (test code = Negative Negative 365) KETONES UA (BEAKER) (test code = Negative Negative 371) BILIRUBIN UA (BEAKER) (test code = Negative Negative 462) BLOOD UA (BEAKER) (test code = 461) Negative Negative NITRITE UA (BEAKER) (test code = Negative Negative 465) LEUKOCYTE ESTERASE UA (BEAKER) Negative Negative (test code = 466) UROBILINOGEN UA (BEAKER) (test code 0.2 mg/dL 0.2-1.0 = 463) RBC UA (BEAKER) (test code = 519) < /HPF WBC UA (BEAKER) (test code = 520) < /HPF SQUAMOUS EPITHELIAL (BEAKER) (test 1 /HPF code = 516) SOURCE(BEAKER) (test code = 2795) [id number] 21:00:00 Test Item Value Reference Range Interpretation Comments MAGNESIUM (BEAKER) (test code = 2.2 mg/dL 1.6-2.6 627) BASIC METABOLIC [id number] 21:00:00 Test Item Value Reference Range Interpretation Comments SODIUM (BEAKER) 140 meq/L 136-145 (test code = 381) POTASSIUM (BEAKER) 3.9 meq/L 3.5-5.1 (test code = 379) CHLORIDE (BEAKER) 110 meq/L 98-107 H (test code = 382) CO2 (BEAKER) (test 20 meq/L 22-29 L code = 355) BLOOD UREA NITROGEN 7 mg/dL 7-21 (BEAKER) (test code = 354) CREATININE (BEAKER) 0.83 mg/dL 0.57-1.25 (test code = 358) GLUCOSE RANDOM 113 mg/dL 70-105 H (BEAKER) (test code = 652) CALCIUM (BEAKER) 9.0 mg/dL 8.4-10.2 (test code = 697) EGFR (BEAKER) (test 81 mL/min/1.73 ESTIMA HOLLY GFR IS code = 1092) sq m NOT ACCURATE CREATININE CLEARANCE IN PREDICTING GLOMERULAR FILTRATION RATE . ESTIMATED GFR I S NOT APPLICABLE FOR DIALYSIS PATIEN TS. [id number] 21:00:00 Test Item Value Reference Range Interpretation Comments PHOSPHORUS (BEAKER) (test code = 3.0 mg/dL 2.3-4.7 604) CBC W/PLT COUNT & AUTO [id number] 20:41:00 Test Item Value Reference Range Interpretation Comments WHITE BLOOD CELL COUNT (BEAKER) 10.2 K/ L 3.5-10.5 (test code = 775) RED BLOOD CELL COUNT (BEAKER) 4.18 M/ L 3.93-5.22 (test code = 761) HEMOGLOBIN (BEAKER) (test code = 12.6 GM/DL 11.2-15.7 410) HEMATOCRIT (BEAKER) (test code = 38.7 % 34.1-44.9 411) MEAN CORPUSCULAR VOLUME (BEAKER) 92.6 fL 79.4-94.8 (test code = 753) MEAN CORPUSCULAR HEMOGLOBIN 30.1 pg 25.6-32.2 (BEAKER) (test code = 751) MEAN CORPUSCULAR HEMOGLOBIN CONC 32.6 GM/DL 32.2-35.5 (BEAKER) (test code = 752) RED CELL DISTRIBUTION WIDTH 13.0 % 11.7-14.4 (BEAKER) (test code = 412) PLATELET COUNT (BEAKER) (test 314 K/CU MM 150-450 code = 756) MEAN PLATELET VOLUME (BEAKER) 9.4 fL 9.4-12.3 (test code = 754) NUCLEATED RED BLOOD CELLS 0 /100 WBC 0-0 (BEAKER) (test code = 413) NEUTROPHILS RELATIVE PERCENT 62 % (BEAKER) (test code = 429) LYMPHOCYTES RELATIVE PERCENT 29 % (BEAKER) (test code = 430) MONOCYTES RELATIVE PERCENT 8 % (BEAKER) (test code = 431) EOSINOPHILS RELATIVE PERCENT 1 % (BEAKER) (test code = 432) BASOPHILS RELATIVE PERCENT 0 % (BEAKER) (test code = 437) NEUTROPHILS ABSOLUTE COUNT 6.32 K/ L 1.56-6.13 H (BEAKER) (test code = 670) LYMPHOCYTES ABSOLUTE COUNT 2.94 K/ L 1.18-3.74 (BEAKER) (test code = 414) MONOCYTES ABSOLUTE COUNT (BEAKER) 0.81 K/ L 0.24-0.36 H (test code = 415) EOSINOPHILS ABSOLUTE COUNT 0.09 K/ L 0.04-0.36 (BEAKER) (test code = 416) BASOPHILS ABSOLUTE COUNT (BEAKER) 0.02 K/ L 0.01-0.08 (test code = 417) IMMATURE GRANULOCYTES-RELATIVE 0 % 0-1 PERCENT (BEAKER) (test code = 2801) SALICYLATE [id number] 15:48:00 Test Item Value Reference Range Interpretation Comments SALICYLATE LEVEL (BEAKER) (test code < mg/dL 15.0-30.0 L = 764) Therapeutic Range: 15.0-30.0 mg/dLToxic: >30.0 mg/dL Lethal: >70.0 mg/dL [id number] 15:45:00 Test Item Value Reference Range Interpretation Comments PHOSPHORUS (BEAKER) (test code = 2.3 mg/dL 2.3-4.7 604) [id number] 15:45:00 Test Item Value Reference Range Interpretation Comments MAGNESIUM (BEAKER) (test code = 2.1 mg/dL 1.6-2.6 627) BASIC METABOLIC [id number] 15:45:00 Test Item Value Reference Range Interpretation Comments SODIUM (BEAKER) 138 meq/L 136-145 (test code = 381) POTASSIUM (BEAKER) 3.5 meq/L 3.5-5.1 (test code = 379) CHLORIDE (BEAKER) 110 meq/L 98-107 H (test code = 382) CO2 (BEAKER) (test 20 meq/L 22-29 L code = 355) BLOOD UREA NITROGEN 6 mg/dL 7-21 L (BEAKER) (test code = 354) CREATININE (BEAKER) 0.77 mg/dL 0.57-1.25 (test code = 358) GLUCOSE RANDOM 118 mg/dL 70-105 H (BEAKER) (test code = 652) CALCIUM (BEAKER) 8.6 mg/dL 8.4-10.2 (test code = 697) EGFR (BEAKER) (test 89 mL/min/1.73 ESTIMA HOLLY GFR IS code = 1092) sq m NOT ACCURATE CREATININE CLEARANCE IN PREDICTING GLOMERULAR FILTRATION RATE . ESTIMATED GFR I S NOT APPLICABLE FOR DIALYSIS PATIEN TS. CBC W/PLT COUNT & AUTO [id number] 15:31:00 Test Item Value Reference Range Interpretation Comments WHITE BLOOD CELL COUNT (BEAKER) 13.5 K/ L 3.5-10.5 H (test code = 775) RED BLOOD CELL COUNT (BEAKER) 3.73 M/ L 3.93-5.22 L (test code = 761) HEMOGLOBIN (BEAKER) (test code = 11.1 GM/DL 11.2-15.7 L 410) HEMATOCRIT (BEAKER) (test code = 35.3 % 34.1-44.9 411) MEAN CORPUSCULAR VOLUME (BEAKER) 94.6 fL 79.4-94.8 (test code = 753) MEAN CORPUSCULAR HEMOGLOBIN 29.8 pg 25.6-32.2 (BEAKER) (test code = 751) MEAN CORPUSCULAR HEMOGLOBIN CONC 31.4 GM/DL 32.2-35.5 L (BEAKER) (test code = 752) RED CELL DISTRIBUTION WIDTH 12.9 % 11.7-14.4 (BEAKER) (test code = 412) PLATELET COUNT (BEAKER) (test 267 K/CU MM 150-450 code = 756) MEAN PLATELET VOLUME (BEAKER) 9.1 fL 9.4-12.3 L (test code = 754) NUCLEATED RED BLOOD CELLS 0 /100 WBC 0-0 (BEAKER) (test code = 413) NEUTROPHILS RELATIVE PERCENT 74 % (BEAKER) (test code = 429) LYMPHOCYTES RELATIVE PERCENT 18 % (BEAKER) (test code = 430) MONOCYTES RELATIVE PERCENT 8 % (BEAKER) (test code = 431) EOSINOPHILS RELATIVE PERCENT 0 % (BEAKER) (test code = 432) BASOPHILS RELATIVE PERCENT 0 % (BEAKER) (test code = 437) NEUTROPHILS ABSOLUTE COUNT 9.90 K/ L 1.56-6.13 H (BEAKER) (test code = 670) LYMPHOCYTES ABSOLUTE COUNT 2.43 K/ L 1.18-3.74 (BEAKER) (test code = 414) MONOCYTES ABSOLUTE COUNT (BEAKER) 1.05 K/ L 0.24-0.36 H (test code = 415) EOSINOPHILS ABSOLUTE COUNT 0.02 K/ L 0.04-0.36 L (BEAKER) (test code = 416) BASOPHILS ABSOLUTE COUNT (BEAKER) 0.02 K/ L 0.01-0.08 (test code = 417) IMMATURE GRANULOCYTES-RELATIVE 1 % 0-1 PERCENT (BEAKER) (test code = 4590)
[2022-10-04] MEDS ORDERED: IBUPROFEN 200 MG TAB PO ONE (08:12)
[2022-10-04] MEDS ORDERED: IBUPROFEN 400 MG TAB ONE (08:13)
--- NOTE | 2022-10-04 09:00 | ER ---
Nurse's Notes [facility] Name: Pamela Torres Age: 31 yrs Sex: Female : 1990 Arrival Date: 10/04/2022 Time: 07:46 Bed 7 Private MD: Diagnosis: Contusion of right hand Presentation: 10/04 07:58 Chief complaint: Patient states: punched a metal door last night, now has pain, iw swelling/bruising to right hand. Coronavirus screen: At this time, the client does not indicate any symptoms associated with coronavirus-19. Ebola Screen: Patient negative for fever greater than or equal to 101.5 degrees Fahrenheit, and additional compatible Ebola Virus Disease symptoms Patient denies exposure to infectious person. Patient denies travel to an Ebola-affected area in the 21 days before illness onset. No symptoms or risks identified at this time. Initial Sepsis Screen: Does the patient meet any 2 criteria? No. Patient's initial sepsis screen is negative. Does the patient have a suspected source of infection? No. Patient's initial sepsis screen is negative. Risk Assessment: Do you want to hurt yourself or someone else? Patient reports no desire to harm self or others. Onset of symptoms was October 03, 2022. 07:58 Method Of Arrival: Ambulatory iw 07:58 Acuity: MARIO ALBERTO 4 iw Triage Assessment: 09:12 General: Appears in no apparent distress. Injury Description: Abrasion Bruise. 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 - Social history:: Smoking status: Reported history of juuling and/or vaping. Screenin:11 [facility] [place] ED Fall Risk Assessment (Adult) Score/Fall Risk Level 0 - 2 = Low Risk ll1 Oriented to surroundings, Maintained a safe environment, Educated pt \T\ family on fall prevention, incl call for assistance when getting out of bed, Hourly rounding (assess needs \T\ fall precautionary measures) done. Abuse screen: Denies threats or abuse. Nutritional screening: No deficits noted. Tuberculosis screening: No symptoms or risk factors identified. Assessment: 08:13 General: Appears uncomfortable, Behavior is calm, cooperative, appropriate for age. ll1 Pain: Complains of pain in right hand Quality of pain is described as aching. Derm: abrasion near R hand 4th knuckle. Musculoskeletal: Circulation, motion, and sensation intact. Capillary refill < 3 seconds, Swelling present in MCP of right little finger and MCP of right ring finger. 09:00 Reassessment: Patient appears in no apparent distress at this time. Patient and/or hb family updated on plan of care and expected duration. Pain level reassessed. Patient is alert, oriented x 3, equal unlabored respirations, skin warm/dry/pink. 09:09 Musculoskeletal: Circulation, motion, and sensation intact. Capillary refill < 3 ll1 seconds. 09:11 Reassessment: No changes from previously documented assessment. Patient and/or family ll1 updated on plan of care and expected duration. Pain level reassessed. Patient is alert, oriented x 3, equal unlabored respirations, skin warm/dry/pink. Vital Signs: 07:58 BP 125 / 88; Pulse 81; Resp 16; Temp 98.1; Pulse Ox 98% on R/A; Weight 81.65 kg; Height iw 5 ft. 2 in. (157.48 cm); Pain 7/10; 07:58 Body Mass Index 32.92 (81.65 kg, 157.48 cm) iw ED Course: 07:46 Patient arrived in ED. as 07:59 Triage completed. iw 07:59 Arm band placed on. iw 08:00 Branden Day MD is Attending Physician. kdr 08:00 Verónica Perez FNP [facility] jh7 08:06 Carlee Yu, CELY is Primary Nurse. ll1 08:11 Patient has correct armband on for positive identification. Bed in low position. Call ll1 light in reach. Cardiac monitoring not applicable on this patient. 09:08 Juan Jose wrap to right hand. ll1 09:11 No provider procedures requiring assistance completed. Patient did not have IV access ll1 during this emergency room visit. Administered Medications: 08:15 Drug: Ibuprofen 600 mg Route: PO; ll1 09:11 Follow up: Response: No adverse reaction; Pain is unchanged, physician notified; RASS: ll1 Alert and Calm (0) Medication: 08:11 VIS not applicable for this client. 1 Outcome: 09:00 Discharge ordered by . ann marie 09:11 Discharged to home ambulatory. 1 09:11 Condition: stable 09:11 Discharge instructions given to patient, Instructed on discharge instructions, follow up and referral plans. Demonstrated understanding of instructions, follow-up care. 09:12 Patient left the ED. 1 Signatures: Branden Day MD MD kdr Martinez, Amelia as Williams, Irene, CELY RN Fidelina De La Rosa, CELY RN Carlee Ruiz RN RN 1 Verónica Perez, RESPIRATORY THERAPY AIDE RESPIRATORY THERAPY AIDE [facility]
--- NOTE | 2022-10-04 09:00 | EDPHYS ---
Physician Documentation [facility] Name: Pamela Torres Age: 31 yrs Sex: Female : 1990 Arrival Date: 10/04/2022 Time: 07:46 Bed 7 Private MD: ED Physician Branden Day HPI: 10/04 08:00 This 31 yrs old Female presents to ER via Ambulatory with complaints of Hand Injury. jh7 08:00 The patient or guardian reports injury. The complaints affect the MCP of right ring jh7 finger and MCP of right little finger. Context: The problem was sustained at home, resulted from using own fist to strike, a door. Onset: The symptoms/episode began/occurred last night. Associated signs and symptoms: The patient has no apparent associated signs or symptoms. 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 - Social history:: Smoking status: Reported history of juuling and/or vaping. ROS: 08:00 Constitutional: Negative for fever, chills, and weight loss, Eyes: Negative for injury, jh7 pain, redness, and discharge, ENT: Negative for injury, pain, and discharge, Neck: Negative for injury, pain, and swelling, Cardiovascular: Negative for chest pain, palpitations, and edema, Respiratory: Negative for shortness of breath, cough, wheezing, and pleuritic chest pain, Back: Negative for injury and pain, Skin: Negative for injury, rash, and discoloration, Neuro: Negative for headache, weakness, numbness, tingling, and seizure. 08:00 MS/extremity: Positive for contusion, decreased range of motion, pain, swelling, tenderness. 08:00 All other systems are negative. Exam: 08:00 Constitutional: This is a well developed, well nourished patient who is awake, alert, jh7 and in no acute distress. Head/Face: Normocephalic, atraumatic. Eyes: Pupils equal round and reactive to light, extra-ocular motions intact. Lids and lashes normal. Conjunctiva and sclera are non-icteric and not injected. Cornea within normal limits. Periorbital areas with no swelling, redness, or edema. Neck: Trachea midline, no thyromegaly or masses palpated, and no cervical lymphadenopathy. Supple, full range of motion without nuchal rigidity, or vertebral point tenderness. No Meningismus. Cardiovascular: Regular rate and rhythm with a normal S1 and S2. No gallops, murmurs, or rubs. Normal PMI, no JVD. No pulse deficits. Respiratory: Lungs have equal breath sounds bilaterally, clear to auscultation and percussion. No rales, rhonchi or wheezes noted. No increased work of breathing, no retractions or nasal flaring. Abdomen/GI: Soft, non-tender, with normal bowel sounds. No distension or tympany. No guarding or rebound. No evidence of tenderness throughout. Back: No spinal tenderness. No costovertebral tenderness. Full range of motion. Skin: Warm, dry with normal turgor. Normal color with no rashes, no lesions, and no evidence of cellulitis. Neuro: Awake and alert, GCS 15, oriented to person, place, time, and situation. Motor strength 5/5 in all extremities. Sensory grossly intact. Normal gait. 08:00 Musculoskeletal/extremity: ROM: limited active range of motion due to pain, in the MCP of right little finger, Circulation is intact in all extremities. Pulses: are normal with no appreciated deficits, Sensation intact. Swelling over the right dorsum of the hand worsening over the fourth and fifth distal metacarpals. Vital Signs: 07:58 BP 125 / 88; Pulse 81; Resp 16; Temp 98.1; Pulse Ox 98% on R/A; Weight 81.65 kg; Height iw 5 ft. 2 in. (157.48 cm); Pain 7/10; 07:58 Body Mass Index 32.92 (81.65 kg, 157.48 cm) MDM: 08:01 Patient medically screened. [facility] 09:10 Differential diagnosis: dislocation, closed fracture, contusion. Data reviewed: vital [facility] signs, nurses notes, radiologic studies, plain films. I considered the following discharge prescriptions or medication management in the emergency department I discussed and recommended Over The Counter medications, Medications were administered in the Emergency Department. See MAR. Independent interpretation of the following test(s) in the Emergency Department X-Ray: My interpretation is no fractures noted. Counseling: I had a detailed discussion with the patient and/or guardian regarding: the historical points, exam findings, and any diagnostic results supporting the discharge/admit diagnosis, to return to the emergency department if symptoms worsen or persist or if there are any questions or concerns that arise at home. 10/04 08:01 Order name: XRAY Hand RIGHT 3 View jh7 10/04 09:03 Order name: RAD; Complete Time: 09:06 EDMN 10/04 08:59 Order name: Juan Jose Wrap; Complete Time: 09:05 jh7 Administered Medications: 08:15 Drug: Ibuprofen 600 mg Route: PO; ll1 09:11 Follow up: Response: No adverse reaction; Pain is unchanged, physician notified; RASS: ll1 Alert and Calm (0) Disposition: 10:17 Co-signature as Attending Physician, Branden Day MD I agree with the assessment and kdr plan of care. Disposition Summary: 10/04/22 09:00 Discharge Ordered Location: Home [facility] Problem: new [facility] Symptoms: are unchanged [facility] Condition: Stable [facility] Diagnosis - Contusion of right hand 7 Followup: 7 - With: Private Physician - When: 2 - 3 days - Reason: Recheck today's complaints Discharge Instructions: - Discharge Summary Sheet [facility] - Hand Contusion [facility] Forms: - Medication Reconciliation Form 7 - Thank You Letter 7 - Work release form iw Signatures: Dispatcher [employer] Branden Gardiner MD MD kdr Williams, Irene, RN RN iw Carlee Yu RN RN 1 Verónica Perez FNP STATISTICAL CLERK [facility]
--- NOTE | 2022-10-04 09:03 | RAD REPORT ---
EXAM DESCRIPTION: RAD - Hand Right 3 View - 10/04/2022 8:23 am CLINICAL HISTORY: Right hand pain status post injury FINDINGS: No fracture or dislocation is seen.
[2022-10-04 09:33] VITALS: BP 125/88; TEMP 98.1; O2SAT 98
== END 2022-10-04 09:12 | disposition home or self-care (01) ==
LOC: ER 07:45
DX: S60.221A Contusion of right hand, initial encounter (principal)
CPT/HCPCS: 99283